=== PATIENT | male | born 1945 | race Caucasian/White ===

== ENCOUNTER 2022-09-19 18:51 | Emergency (ER) | payer MEDICARE, BC, SELFPAY ==
[2022-09-19 19:39] VITALS: BP 154/75; PULSE 61; RESP 16; TEMP 37.1; O2SAT 98
--- NOTE | 2022-09-19 19:53 | ED.GENADULT ---
HPI - General Adult General Time Seen by Provider: 19:53 Date Seen: 09/19/22 Chief complaint: Shortness of Breath/Dyspnea Stated complaint: Shortness of Breath Time Seen by Provider: 09/19/22 19:41 Source: patient, RN notes reviewed and old records reviewed Mode of arrival: ambulatory Limitations: no limitations History of Present Illness HPI narrative: 76-year-old male with history of hypertension, hypercholesterolemia who presents today with shortness of breath. Patient notes that intermittently for the last couple weeks, after activity, takes him a long time to recover. He does not notice any chest pain or shortness of breath during activity. He denies orthopnea or lower extremity swelling. Today he did usual exercise as well as going to the store and when he got back in his car thought he was more short of breath and he would have expected to be. This continued for about 30 minutes, he called the nurse line and they encouraged him to be seen. He initially presented to urgent care then was sent to the emergency department. Shortness of breath is now resolved. He does have a follow-up appointment with his regular doctor tomorrow. Related Data Home Medications Medication Instructions Recorded Confirmed blood sugar diagnostic (Contour #[id number] 06/29/22 09/19/22 Next Test Strips) finasteride 5 mg tablet 5 mg PO 06/29/22 09/19/22 losartan 25 mg tablet 25 mg PO 06/29/22 09/19/22 metronidazole 1 % topical gel ml topical 06/29/22 09/19/22 mupirocin 2 % topical ointment topical 06/29/22 09/19/22 niacin 500 mg tablet,extended ea PO 06/29/22 09/19/22 release 24 hr simvastatin 20 mg tablet 20 mg PO 06/29/22 09/19/22 aspirin 81 mg chewable tablet 81 mg PO QDAY 09/19/22 09/19/22 metformin 1,000 mg tablet 1,000 mg PO BIDWMEAL 09/19/22 09/19/22 metoprolol succinate 100 mg 100 mg PO QDAY 09/19/22 09/19/22 tablet,extended release 24 hr Allergies Allergy/AdvReac Type Severity Reaction Status Date / Time No Known Drug Allergies Allergy Verified 09/19/22 18:29 Review of Systems Status of ROS: Reports: 10 or more systems reviewed and unremarkable except as noted in History and below PFSH [facility] Medical History (Updated 09/19/22 @ 21:30 by Claudy Pollard MD) Balanitis Social History Smoking Status: Never smoker Exam Narrative: Exam Narrative: General: Well-developed and well-nourished, no acute distress Head: Atraumatic and normocephalic Eyes: Pupils are equal reactive, extraocular motions intact, conjunctiva clear ENT: External nose and ears are normal, posterior pharynx without erythema or exudate Neck: No midline cervical tenderness, full spontaneous range of motion the neck, trachea midline, no adenopathy Heart: Regular rate and rhythm no murmurs or thrills Lungs: Clear to auscultation bilaterally without wheezes or crackles Abdomen: Soft, nontender, nondistended with active bowel sounds Musculoskeletal: No tenderness, deformity, or edema Neurologic: Awake, alert, and oriented x3, no gross focal neurologic deficits, cranial nerves intact as tested Psych: Mood and affect are appropriate Skin: No rashes Const: Vital Signs, click to edit/add: Vital Signs - 24 hr 09/19/22 19:39 Temperature 98.7 F Pulse Rate [Left P ulse Oximeter] 61 Respiratory Rate 16 Blood Pressure [Le ft Upper Arm] 154/75 H Pulse Oximetry 98 Oxygen Delivery Me thod Room Air Course Course Hospital Course: Patient seen and examined, prior records are reviewed. Differential diagnosis includes but not limited to heart failure, asthma, upper respiratory infection, pneumonia, acute coronary syndrome, dysrhythmia. Patient presents with prolonged post activity dyspnea which is been intermittent for the last couple weeks. On exam here, he is asymptomatic. Last episode was about 3 hours prior to coming emergency department. Labs, EKG, chest x-ray ordered. If these are reassuring, patient follow-up with his primary care doctor tomorrow as scheduled. Assuming normal results today, he should have a stress test done and this can be arranged through his primary care provider. Reevaluation(s) Reevaluation #1: Labs reassuring including negative troponin, normal BNP. Chest x-ray demonstrates some hyperinflation could be from asthma or emphysema although patient has no history of either of these and only distant history of smoking. Patient is stable for discharge with outpatient follow-up as scheduled tomorrow for further cardiac and pulmonary evaluation. Time: 21:28 Vital Signs Vital signs: Initial Vital Signs Temperature 98.7 F 09/19/22 19:39 Temperature Source Temporal Artery Scan 09/19/22 19:39 Pulse Rate 61 09/19/22 19:39 Respiratory Rate 16 09/19/22 19:39 Blood Pressure 154/75 H 09/19/22 19:39 Blood Pressure Mean 101 09/19/22 19:39 Blood Pressure Position Sitting 09/19/22 19:39 Pulse Oximetry 98 09/19/22 19:39 Oxygen Delivery Method 09/19/22 19:39 Vital Signs Temperature 98.7 F 09/19/22 19:39 Pulse Rate 61 09/19/22 19:39 Respiratory Rate 16 09/19/22 19:39 Blood Pressure 154/75 H 09/19/22 19:39 Pulse Oximetry 98 09/19/22 19:39 Oxygen Delivery Method 09/19/22 19:39 Temperature 98.7 F 09/19/22 19:39 Pulse Rate 61 09/19/22 19:39 Respiratory Rate 16 09/19/22 19:39 Blood Pressure 154/75 H 09/19/22 19:39 Pulse Oximetry 98 09/19/22 19:39 Oxygen Delivery Method 09/19/22 19:39 Medical Decision Making Medical Records Medical records reviewed: Yes I reviewed the patient's medical records Lab Data Lab results reviewed: Yes I reviewed the patient's lab results Labs: Lab Results 09/19/22 09/19/22 09/19/22 Range/Units 20:27 20:27 20:27 WBC 5.57 (4.50-11.00) K/uL RBC 4.94 (4.30-5.90) m/uL Hgb 15.3 (13.5-17.5) gm/dL Hct 45.6 (37.0-53.0) % MCV 92 (80-100) fL MCH 31 (26-34) pg MCHC 34 (32-36) gm/dL RDW Coeff of Kerry 12.5 (11.5-15.5) % Plt Count 178 (140-440) K/uL Neut % (Auto) 59.7 (42.0-72.0) % Lymph % (Auto) 26.0 (20-44) % Love % (Auto) 8.4 (0.0-11.0) % Eos % (Auto) 5.4 (0.0-7.0) % Baso % (Auto) 0.5 (0.0-3.0) % Neut # (Auto) 3.32 (1.7-7.0) K/uL Lymph # (Auto) 1.45 (0.90-2.90) K/uL Love # (Auto) 0.50 (0.00-0.90) K/UL Eos # (Auto) 0.30 (0.00-0.50) K/uL Baso # (Auto) 0.03 (0.00-0.30) K/uL Abs Immat Gran (auto) 0.00 (0.00-0.30) K/uL Imm/Tot Granulo (auto) 0.0 % Sodium 139 (135-149) mmol/L Potassium 4.0 (3.6-5.1) mmol/L Chloride 103 (96-114) mmol/L Carbon Dioxide 27 (20-32) mmol/L BUN 19 (7-30) mg/dL Creatinine 1.0 (0.5-1.5) mg/dL Estimated GFR 79 ml/min Glucose 97 (60-115) mg/dL Calcium 9.3 (8.4-10.6) mg/dL NT-Pro-B Natriuret Pep 73 (0-125) PG/mL POC Troponin I 0.00 L (0.01-0.04) ng/ml Imaging Data Chest x-ray: Attestation: I have reviewed the pertinent imaging results. My impression: Negative chest x-ray Radiologist's impression: Impression: Hyperinflation and chronic interstitial change with minimal basilar atelectasis versus scar. ECG Data Attestation: I personally reviewed and interpreted this ECG as follows: Prior ECG tracings: not available for review Interpretation: Performed at 8:20 p.m. demonstrates normal sinus rhythm rate 61, no acute ST elevations or depressions, normal intervals, normal axis, NV 158. No prior for comparison. Discharge Plan Discharge Clinical Impression: Acute dyspnea Patient Disposition: Home, Self-Care Condition: Stable Instructions: Dyspnea (ED), Cardiac Stress Test (DC) Additional Instructions: Follow-up with your doctor tomorrow as scheduled to discuss further testing Activity Level: Activity as Tolerated Discharge Diet: Regular Prescriptions: No Action mupirocin 2 % ointment topical Label Comments: APPLY TO EXCISION SITE 1-2 TIMES DAILY UNTIL WELL HEALED metronidazole 1 % gel topical (DME) Contour Next Test Strips Strip See Rx Instructions .ROUTE .MEDSUPPLY Qty: 10 Label Comments: TEST THREE TIMES DAILY DIRECTED Rx Instructions: As directed losartan 25 mg tablet 25 mg PO Label Comments: TAKE 1 TABLET BY MOUTH ONCE DAILY. finasteride 5 mg tablet 5 mg PO niacin 500 mg tablet extended release 24 hr PO Label Comments: TAKE 1 TABLET BY MOUTH AT BEDTIME. simvastatin 20 mg tablet 20 mg PO Label Comments: TAKE 1 TABLET BY MOUTH ONCE DAILY WITH EVENING MEAL. metformin 1,000 mg tablet 1,000 mg PO BIDWMEAL metoprolol succinate 100 mg tablet extended release 24 hr 100 mg PO QDAY Label Comments: TAKE 1 TABLET BY MOUTH ONCE DAILY. aspirin 81 mg tablet,chewable 81 mg PO QDAY Follow Up/Referrals: Christofer Castelan MD [Primary Care Provider] - Stand Alone Forms: [employer] Info Instructions
[2022-09-19 19:56] VITALS: BP 165/85; PULSE 55; RESP 12; O2SAT 96
--- NOTE | 2022-09-19 19:56 | CRLHL7_ITS ---
For Patients: As a result of the Century Cures Act, medical imaging exams and procedure reports are released immediately into your electronic medical record. You may view this report before your referring provider. If you have questions, please contact your health care provider. Indication: Dyspnea on exertion Comparison: Two-view chest July 20, 2017 Technique: PA and lateral views of the chest Findings: There is hyperinflation and chronic interstitial change with basilar atelectasis versus scar. The cardiomediastinal silhouette is within normal limits. The bony thorax is grossly intact. Impression: Hyperinflation and chronic interstitial change with minimal basilar atelectasis versus scar. Dictated by Felix Charles MD @ 09/19/2022 8:46:12 PM (Electronically Signed)
--- OUTSIDE RECORDS SUMMARY | 2022-09-19 20:03 | XMS_ITS | Clinical Summary ---
:1945 Author Organization [employer] [facility] [place] [address] Care Team Providers Name Role Phone Christofer Castelan MD Primary Care Provider Allergies Active Allergy Reactions Severity Noted Date Comments Lisinopril Cough 01/20/2007 Medications Medication Sig Dispensed Refills Start Date End Date Status ASPIRIN 81 MG TAB take 1 tablet 0 05/20/2007 Active (81mg) by oral route once daily MULTIVITAMIN ORAL Once daily 0 09/28/2008 Active Blood Pressure Test As directed. 1 Kit 0 03/18/2014 Active Kit-Large (QUICK Automatic arm RESPONSE BP MONITOR) cuff. Diagnosis kitIndications: 401.0 Unspecified essential hypertension metroNIDAZOLE Apply topically 45 g 0 06/10/2016 Active (METROGEL) 1 % to affected gelIndications: Rosacea area(s) 2 times daily. ACCU-CHEK GUIDE GLUCOSE USE TO TEST 1 Kit 0 09/29/2020 Active METERIndications: TWICE A DAY Impaired fasting glucose cholecalciferol Take 1 Capsule 90 Capsule 3 03/02/2021 Active (Vitamin D-3) 2,000 (2,000 units) by unit capsule mouth once daily. Contour Next Test TEST THREE TIMES 300 Each 3 02/24/2022 Active Strips DAILY stripIndications: DIRECTED Impaired fasting glucose finasteride (PROSCAR) 5 Take 5 mg by 0 02/20/2022 Active mg tablet mouth once daily. losartan (COZAAR) 25 mg Take 1 Tablet 90 tablet. 4 07/26/2022 Active tabletIndications: (25 mg) by mouth Essential hypertension once daily. metFORMIN (GLUCOPHAGE) Take 1 Tablet 180 Tablet 4 07/26/2022 Active 1,000 mg (1,000 mg) by tabletIndications: mouth two times Prediabetes daily with meals. metoprolol succinate Take 1 Tablet 90 Tablet 4 07/26/2022 Active (TOPROL XL) 100 mg (100 mg) by Sustained-Release mouth once tabletIndications: daily. Essential hypertension niacin ER (NIASPAN) 500 Take 1 Tablet 90 Tablet 4 07/26/2022 Active mg Sustained-Release (500 mg) by tabletIndications: mouth at Mixed hyperlipidemia bedtime. simvastatin (ZOCOR) 20 Take 0.5 Tablets 45 Tablet 4 07/26/2022 Active mg tabletIndications: (10 mg) by mouth Mixed hyperlipidemia once daily with evening meal. blood-glucose Dispense meter, 1 Each 0 07/26/2022 Active meterIndications: Type test strips, 2 diabetes mellitus lancets covered without complication, by pt ins. Use without long-term to test Twice current use of insulin daily. Refills (HC) for one year. Active Problems Problem Noted Date Type 2 diabetes mellitus without complication, without long-term current 03/13/2022 use of insulin Basal cell carcinoma (BCC) of skin of lip 07/23/2021 Overview: Treated with 20 radiation txs per [facility] [place] Primary cancer of bladder 07/03/2018 ACP (advance care planning) 06/22/2012 Overview: Formatting of this note is dif ferent from the original. 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 Provide interventions aimed at treatment of new or reversible illness/injury or non-life threatening chronic conditions. Durat ion of invasive or uncomfortable interve ntions should generally be limited. Colon polyp 08/27/2011 Overview: Colonoscopy 08/2011 polyp, diverticulosi s repeat in 5 years Colonoscopy 08/2016 polyp repeat in 5 ye ars Colonoscopy 08/2021 TA, repeat in 7 year s with propofol Prediabetes 11/13/2009 Overview: Excellent control with metformin and t and exercise daily. 05/31/2013 Special screening for malignant neoplasm of prostate 0 04/14/2008 Unspecified essential hypertension 01/20/2007 Mixed hyperlipidemia 01/20/2007 Obesity, unspecified 01/20/2007 Routine general medical examination at [facility] acility 01/20/2007 Overview: colonoscopy 11/01/2005 Recheck 5 yrs. Encounters Date Type Specialty Care Team Description 09/19/2022 Travel 09/19/2022 Nurse Triage Christofer Castelan Shortness Of Breath MD Deepak 08/30/2022 Office Visit Christofer Castelan Anxiety; Slee p Problem MD Deepak (Having trouble sleeping, is taking benad ryl now this has been h elping. ) 08/30/2022 Travel 07/26/2022 Office Visit Christofer Castelan Medicare MILADY ANTONIA Sotelo MD (subsequent) Vi sit (76 year medicare w critical access hospital visit- no yolie rns) 07/26/2022 Travel 07/24/2022 Orders Only Lab, [place] [facility] 07/24/2022 Travel 07/19/2022 Nurse/Clinic Staff Christofer Castelan Immuniz ation/Injection Only MD Deepak (COVID-19 ); Immunization/In jection (COVID-19 vacci ne) from Last 3 Months Immunizations Name Administration Dates Next Due AMB Influenza, IIV3 (Age >=3 07/14/2013, 09/19/2009, 009, years)(Flu Clinic Only) 09/09/2008 Amb Influenza, Inact (High-dose) (Flu 07/25/2014 Clinic Only) COVID-19 vaccine ([employer] 07/19/2022 30mcg/0.3mL) 12YO+ BIVALENT BOOSTER JOSY PINEDA COVID-19 vaccine ([employer] 02/06/2022 30mcg/0.3mL) 12YO+ RAMILA-SUCROSE PF, MDV COVID-19 vaccine ([employer] 12/26/2020, 12/05/2020 30mcg/0.3mL) PF, MDV HepA-HepB (T[employer]) 09/09/2005, 11/13/2004, 10/08/2004 Influenza A (H1N1), Inactivated 10/05/2009 Influenza A (H1N1), Inactivated (Age 1210/05/2009 >=3 Years) Influenza, High-dose Inactivated 07/26/2017, 07/08/2016, 04/2015, 07/25/2014 Influenza, IIV3 (Age 6-35 mos) 07/31/2011, 09/19/2009 Influenza, IIV3 (Age >=3 years) 07/14/2013, 06/22/2012, 07/13, 07/30/2010, 09/09/2008, 09/28/2007, 09/11/2006, 09/09/2005, 08/23/2003 Influenza, Inactivated AIIV4 (Age 65+ 07/26/2022, 07/23/2021 , 06/30/2020 Years) Preserv Free Influenza, Inactivated IIV3 (Age 65+ 06/30/2019, 07/03/2018 Years) Preserv Free Pneumococcal Poly,23-Valent 10/26/2012 (Pneumovax) Pneumococcal conj 13-Valent (Prevnar 06/07/2015 13) Td (Age >=7 Years) 11/13/2004, 01/29/1996 Tdap 12/09/2011 Zoster (Shingrix-RZV, recombinant) 10/10/2018, 07/06/2018 Zoster (Zostavax-ZVL, live) 09/28/2007 Family History Medical History Relation Name Comments Cancer Brother 2 Kan lung Brain cancer Brother 4 Man of Glio at 60 Arthritis Father Patrick Asthma Father Patrick Heart Disease Father Patrick Atrial Fibrillat ion Heart failure Father Patrick of this at 90 Stroke Father Patrick Stroke Blood Disease Mother Lizzeth Bentley's Granulo matosis Cancer-breast Mother Lizzeth Heart Disease Mother Lizzeth Atrial Fibrillat ion/WA, of this at 90 Hypertension Mother Lizzeth Anesthesia Problem No Family History Relation Name Status Comments Brother 1 Christofer Alive Brother 2 Kan Alive Brother 3 Shayan Alive Brother 4 Man Alive Father Patrick Mother Lizzeth Sister Sintia Alive Social History Tobacco Use Types Packs/Day Years Used Date Never Smoker Smokeless Tobacco: Never Used Tobacco Cessation: Counseling Given: Yes Alcohol Use Standard Drinks/Week Comments Yes 1.7 (1 standard drink = 0.6 oz pure alco hol) occ Alcohol Habits Answer Date Recorded How often do you have a drink containing alcohol? Not asked How many drinks containing alcohol do you have on a typical Not asked day when you are drinking? How often do you have six or more drinks on one occasion? No t asked Comment: occ 06/30/2019 Sex Assigned at Date Recorded Not on file COVID-19 Exposure Response Date Recorded In the last 10 days, have you been in contact with No / Unsu re 09/19/2022 5:44 PM [employer] someone who was confirmed or suspected to have Coronavirus/COVID-19? Obstetrics History Last Filed Vital Signs Vital Sign Reading Time Taken Comments Blood Pressure 113/66 08/30/2022 1:04 PM [employer] Pulse 67 08/30/2022 1:04 PM [employer] Temperature 36.7 ??C (98 ??F) 05/25/2022 2:29 PM CDT Respiratory Rate 18 05/25/2022 2:29 PM CDT Oxygen Saturation 98% 08/30/2022 1:04 PM [employer] Inhaled Oxygen Concentration - - Weight 92.7 kg (204 lb 6.4 oz) 08/30/2022 1:04 PM [employer] Height 172 cm (5' 7.72) 08/30/2022 1:04 PM [employer] Body Mass Index 31.34 08/30/2022 1:04 PM [employer]CH[employer]IC Plan of Treatment Upcoming Encounters Date Type Specialty Care Team Description 09/20/2022 Office Visit Peyton Christensen DO [address] [address] [place] 01/27/2023 Orders Only Lab[facility] [place] 01/29/2023 Office Visit Christofer Castelan MD [address] [address] ([place]) Health Maintenance Due Date Last Done Comments Tetanus booster 12/09/2021 12/09/2011, 11/13/2004, 01/29/1996 Medicare Wellness for age 65+ 07/26/2023 07/26/2022, 2020, 07/03/2018, Additional history exists BMI (ht and wt on same day) for 08/30/2023 08/30/2022, 07/13, age 18+ 05/10/2022, Additional history exists Depression screening for age 12+ 08/30/2023 08/30/2022, , 07/24/2021, Additional history exists Colonoscopy through age 75 08/14/2026 08/14/2021, , 08/30/2016, Additional history exists Lipids for age 45-75 07/24/2027 07/24/2022, 03/12/2022, 09/03/2021, Additional history exists Tdap Completed 12/09/2011 Pneumococcal series for age 65+ Completed 06/07/2015, 10/13 Zoster (shingles) series for age Completed 10/10/2018, , 50+ 09/28/2007 Hepatitis C screening for age Completed 03/12/2022 18-79 COVID-19 vaccine series Completed 07/19/2022, 02/06/2022, 07/19/2021, Additional history exists Influenza for age 65+ Completed 07/26/2022, 07/23/2021, 06/30/2020, Additional history exists Procedures Procedure Name Priority Date/Time Associated Diagnosis Comme nts LIPID PANEL W Routine 07/24/2022 7:32 AM Mixed hyperlipidemia Results for this REFLEX MEASURED LDL CDT procedur e are in the results section. BASIC METABOLIC Routine 07/24/2022 7:32 AM Unspecified essenti al Results for this PANEL CDT hypertension procedure are i n the results section. HEMOGLOBIN A1C Routine 07/24/2022 7:32 AM Prediabetes Results for this CDT procedure are i n the results section. from Last 3 Months Results (ABNORMAL) LIPID PANEL W REFLEX MEASURED LDL (07/24/2022 7:32 AM CDT) Patholo gist Method Time Signature CHOLESTEROL,TOTAL 108 100 - 199 07/24/2022 [facility] mg/dL 9:50 PM CDT [facility] TRIGLYCERIDES 104 <150 07/24/2022 [facility] mg/dL 9:50 PM CDT [facility] HDL CHOLESTEROL 40 (L) >40 mg/dL 07/24/2022 [facility] 9:50 PM CDT [facility] NON-HDL 68 <145 07/24/2022 [facility] CHOLESTEROL mg/dl 9:50 PM CDT [facility] CHOL/HDL RATIO 2.70 <4.50 07/24/2022 [facility] 9:50 PM CDT [facility] LDL CHOLESTEROL 47 <=130 07/24/2022 [facility] mg/dL 9:50 PM CDT [facility] VLDL CHOLESTEROL 21 <=30 07/24/2022 [facility] mg/dL 9:50 PM CDT [facility] PROVIDER ORDERED RANDOM 07/24/2022 [facility] STATUS 9:50 PM CDT [facility] Specimen Anatomical Collection Method / Collection Time Recei leonie Time (Source) Location / Volume Laterality Blood BLOOD SPECIMEN / Venipuncture / 07/24/2022 7:32 2021 7:38 Unknown Unknown AM CDT AM CDT Christofer Castelan MD CHEMISTRY Performing Organization Address City/State/ZIP Code Phon e Number [facility] [address] [place] [address] [facility] LAB[facility]ATORY HEMOGLOBIN A1C MONITORING (POCT) (07/24/2022 7:32 AM CDT) P athologist Signature HEMOGLOBIN A1C 5.5 <=6.4 % 07/24/2022 [facility] 7:47 AM CDT [place] (POCT) [facility] Specimen Anatomical Collection Method / Collection Time Recei leonie Time (Source) Location / Volume Laterality Blood BLOOD SPECIMEN / Venipuncture / 07/24/2022 7:32 2021 7:38 Unknown Unknown AM CDT AM CDT Narrative [facility] 2021 7:47 AM CDT ? (<=6.9%) ? Indicates good control ? (7.0% to 7.9%) ? Indicates fa ir control ? (>=8.0%) ? Indicates poor control ?? NOTE: ??These thresholds are guideli regina and ?individual targets may va ry. Falsely low levels may be seen with: Recent Transfusion, Recent Significant B lood Loss, Hemolytic Diseases, or Falsely elevated levels may be seen with : Untreated Anemias, Splenectomy ? Christofer Castelan MD CHEMISTRY Performing Organization Address City/State/ZIP Code Phon e Number [facility] [address] [place] [address] (ABNORMAL) BASIC METABOLIC PANEL (07/24/2022 7:32 AM CDT) Analysis Performed At Patho logist Time Signature SODIUM 141 135 - 145 07/24/2022 [facility] mmol/L 9:49 PM CDT [facility] POTASSIUM 4.2 3.5 - 5.0 07/24/2022 [facility] mmol/L 9:49 PM CDT [facility] CHLORIDE 105 98 - 110 07/24/2022 [facility] mmol/L 9:49 PM CDT [facility] CO2,TOTAL 26 21 - 31 07/24/2022 [facility] mmol/L 9:49 PM CDT [facility] ANION GAP 10 5 - 18 07/24/2022 [facility] 9:49 PM CDT [facility] GLUCOSE 107 (H) 65 - 100 07/24/2022 [facility] mg/dL 9:49 PM CDT [facility] CALCIUM 8.8 8.5 - 10.5 07/24/2022 [facility] mg/dL 9:49 PM CDT [facility] BUN 13 8 - 25 07/24/2022 [facility] mg/dL 9:49 PM CDT [facility] CREATININE 0.88 0.72 - 07/24/2022 [facility] 1.25 mg/dL 9:49 PM CDT [facility] BUN/CREAT RATIO 15 10 - 20 07/24/2022 [facility] 9:49 PM CDT [facility] eGFR 90 (L) >90 07/24/2022 [facility] mL/min/1.7 9:49 PM CDT [facility] 3m2 [facility]AL [facility] Comment: As of 2021, eGFR is calcu lated by the CKD-EPI creatinine equation without race adjustment. eGFR can be inf luenced by muscle mass, exercise, and diet. The reported eGFR is an estimation only and is only applicable if the renal function is stable. Specimen Anatomical Collection Method / Collection Time Recei leonie Time (Source) Location / Volume Laterality Blood BLOOD SPECIMEN / Venipuncture / 07/24/2022 7:32 2021 7:38 Unknown Unknown AM CDT AM CDT Christofer Castelan MD CHEMISTRY Performing Organization Address City/State/ZIP Code Phon e Number [facility] [address] [place] [address] LAB[facility] [address] LABORATORY from Last 3 Months Insurance Payer Benefit Plan / Subscriber ID Effective Dates Phone Addre ss Type Group MEDICARE PART B MEDICARE PART B [id number] 2012-Presen ATTN: CLAIMS - HB USE ONLY HB ONLY t [address] [place] [address] MEDICARE PART A MEDICARE PART A [id number] 2012-Presen ATTN: CLAIMS - HB USE ONLY HB ONLY t [address] [place] [address] [place] [place] [employer] [place] [id number] 2016-Presen [address] [address] [place] [address], [place] ONLY [id number] [employer] [place] [id number] 2016-[place] [address] [address] [address] [place], [place] [id number] Advance Directives Documents on File Type Date Recorded 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
--- OUTSIDE RECORDS SUMMARY | 2022-09-19 20:03 | XMS_ITS | Encounter Summary ---
:1945 Author Care Team Providers Name Role Phone [facility] Primary Care Provider [phone] Reason for Visit None recorded. Assessment and Plan 1. History of malignant neoplasm of braden dder Discussion Note rtc 6 months for 4 year BTR Patient educational handouts: No information available. Plan of Care Reminders Provider Appointments Established 10 03/14/2023 10:00AM Norman carrasquillo MD Lab None recorded. ? ? Referral None recorded. ? ? Procedures None recorded. ? ? Surgeries None recorded. ? ? Imaging None recorded. ? ? Medications Name Start Date ? ? cefdinir 300 mg capsule ? TAKE 1 CAPSULE (300 MG) BY MOUTH IN THE MORNING AND 1 CAPSULE (300 MG) IN THE EVENING. DO ALL THIS FOR 7 DAYS. ciprofloxacin 500 mg tablet ? TAKE 1 TABLET TWICE A DAY WITH FOOD AND WATER FOR 7 D AYS. Contour Next One Meter ? Contour Next Test Strips ? TEST THREE TIMES DAILY DIRECTED finasteride 5 mg tablet ? TAKE ONE TABLET BY MOUTH EVERY DAY fluconazole 200 mg tablet ? TAKE ONE TABLET BY MOUTH EVERY DAY fluticasone propionate 50 mcg/actuation nasal spray,santiago spension ? INSTILL 1-2 SPRAYS TO BOTH NOSTRILS 2 TIMES DAILY FOR 14 DAYS. losartan 25 mg tablet ? TAKE 1 TABLET (25 MG) BY MOUTH ONCE DAILY. metformin ? metformin 1,000 mg tablet ? TAKE 1 TABLET (1,000 MG) BY MOUTH TWO TIMES DAILY WIT H MEALS. metoprolol succinate ER 100 mg tablet,extended release 24 hr ? TAKE 1 TABLET (100 MG) BY MOUTH ONCE DAILY. metronidazole 1 % topical gel ? APPLY A THIN LAYER TO FACE TWICE A DAY mupirocin 2 % topical ointment ? APPLY TO SURGICAL SITE ON EAR 1-2 TIMES DAILY UNTIL H EALED niacin ER 500 mg tablet,extended release 24 hr ? TAKE 1 TABLET (500 MG) BY MOUTH AT BEDTIME. ofloxacin 0.3 % ear drops ? PLACE 10 DROPS INTO LEFT EAR ONCE DAILY FOR 7 DAYS. simvastatin 10 mg tablet ? TAKE 1 TABLET BY MOUTH ONCE DAILY WITH EVENING MEAL. simvastatin 20 mg tablet ? TAKE 1 TABLET BY MOUTH ONCE DAILY WITH EVENING MEAL. triamcinolone acetonide 0.1 % topical ointment ? APPLY TOPICALLY TO AFFECTED AREA(S) 3 TIMES DAILY. Medications Administered None recorded. Vitals Height Weight BMI 5 ft 8 in 201 lbs 30.6 kg/m2 Results Lab Results None recorded. Allergies Code Code System Name Reaction Severity Onset NKDA ? ? ? Problems Name Status Onset Date Source ? 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 History of Malignant Neoplasm of Bladder Active 022 ? Procedures Date Name Performed by ? ? Transurethral Resection of Neoplasm of B ladder Information not available ? Colonoscopy Information not avai lable Vaccine List Vaccine Type pneumococcal polysaccharide PPV23 06/07/2015 Social History Tobacco Smoking Status Never Smoker What is your level of alcohol consumption? Occasional Has tobacco cessation counseling been provided? N Are you currently employed? N Do you or have you ever used smokeless tobacco? Never used s mokeless tobacco What was the date of your most recent tobacco 09/13/2022 screening? Do you or have you ever used e-cigarettes or Never used elec tronic cigarettes vape? What is your level of caffeine consumption? Moderate Do you use any illicit or recreational drugs? N What is your relationship status? Functional Status Unknown. Past Encounters Encounter Date Diagnosis Provider 09/13/2022 History of Malignant Neoplasm of Normna Fl MD sebastian: [address] [place], [place] [phone], Ph. History of Present Illness Note: <div>here for bladder tumor recheck. </div> Review of Systems ? Comprehensive General Adult ROS Reported By: Patient Constitutional: Constitutional: no fever, no chills Endocrine: Endocrine: no fatigue, no in creased thirst Cardiovascular: Cardiovascular: no chest rissa n, no palpitations Respiratory: Respiratory: no wheezing, no cough, no shortness of breath Gastrointestinal: Gastrointestinal: no abdomin al pain, no nausea, no vomiting, no constipation, no GERD Genitourinary: Genitourinary: no incontinen ce, no difficulty urinating Physical Exam None recorded.
--- OUTSIDE RECORDS SUMMARY | 2022-09-19 20:03 | XMS_ITS ---
:1945 Author Care Team Providers Name Role Phone [facility] Primary Care Provider [phone] Allergies Code Code System Name Reaction Severity Status Onset NKDA ? Medications Name Status Start Date Stop Date ? ? amoxicillin 500 mg capsule Completed ? 01/04 amoxicillin 875 mg tablet Completed ? 2021 cefdinir 300 mg capsule Active ? Not avai lable TAKE 1 CAPSULE (300 MG) BY MOUTH IN THE MORNING AND 1 CAPSULE (300 MG) IN THE EVENING. DO ALL THIS FOR 7 DAYS. ciprofloxacin 500 mg tablet Active ? Not available TAKE 1 TABLET TWICE A DAY WITH FOOD AND WATER FOR 7 DAYS. Contour Next One Meter Active ? Not avail able Contour Next Test Strips Active ? Not sonia ilable TEST THREE TIMES DAILY DIRECTED doxycycline hyclate 100 mg tablet Completed ? 01/04/2022 finasteride 5 mg tablet Active ? Not avai lable TAKE ONE TABLET BY MOUTH EVERY DAY fluconazole 200 mg tablet Active ? Not av ailable TAKE ONE TABLET BY MOUTH EVERY DAY fluticasone propionate 50 mcg/actuation nasal spray,suspension A ctive ? Not available INSTILL 1-2 SPRAYS TO BOTH NOSTRILS 2 TIMES DAILY FOR 14 DAYS. hydrocodone 5 mg-acetaminophen 325 mg tablet Completed ? 01/04/2022 losartan 25 mg tablet Active ? Not availa ble TAKE 1 TABLET (25 MG) BY MOUTH ONCE DAILY. metformin Active ? Not available metformin 1,000 mg tablet Active ? Not av ailable TAKE 1 TABLET (1,000 MG) BY MOUTH TWO TIMES DAILY WITH MEALS. metoprolol succinate Completed ? 01/04/2022 metoprolol succinate ER 100 mg tablet,extended release 24 hr Act satya ? Not available TAKE 1 TABLET (100 MG) BY MOUTH ONCE DAILY. metoprolol succinate ER 200 mg tablet,extended release 24 hr Com pleted ? 09/14/2021 TAKE 1 TABLET BY MOUTH ONCE DAILY. metronidazole 1 % topical gel Active ? No t available APPLY A THIN LAYER TO FACE TWICE A DAY mupirocin 2 % topical ointment Active ? N ot available APPLY TO SURGICAL SITE ON EAR 1-2 TIMES DAILY UNTIL HEALED niacin Completed ? 01/04/2022 niacin ER 500 mg tablet,extended release 24 hr Active ? Not available TAKE 1 TABLET (500 MG) BY MOUTH AT BEDTIME. ofloxacin 0.3 % ear drops Active ? Not av ailable PLACE 10 DROPS INTO LEFT EAR ONCE DAILY FOR 7 DAYS. simvastatin Completed ? 01/04/2022 simvastatin 10 mg tablet Active ? Not sonia ilable TAKE 1 TABLET BY MOUTH ONCE DAILY WITH EVENING MEAL. simvastatin 20 mg tablet Active ? Not sonia ilable TAKE 1 TABLET BY MOUTH ONCE DAILY WITH EVENING MEAL. triamcinolone acetonide 0.1 % topical cream Completed ? 01/04/2022 APPLY TO AFFECTED AREA ON BACK TWICE A DAY FOR UP TO 2 WEEKS, A S NEEDED triamcinolone acetonide 0.1 % topical ointment Active ? Not available APPLY TOPICALLY TO AFFECTED AREA(S) 3 TIMES DAILY. Problems Name Status Onset Date Source ? 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 History of Malignant Neoplasm of Bladder Active 022 ? Procedures Date Name Performed by ? ? Transurethral Resection of Neoplasm of B ladder Information not available ? Colonoscopy Information not avai lable Results Lab Results Date Name Specimen Result Interpretation Description Value Range Status Address ? 07/05/2022 Bladder Scan ? Volume (in mL) 0 ? ? [facility]: [address] [facility] [address] [facility], [place] 07/05/2022 Urinalysis, ? Blood-Status Small ? ? [facility]: [address] [facility] [address], [place] ? ? ? Protein-Status >=9.0 ? ? [facility]: [address] [facility] [address], [place] ? ? ? Leuko-Status Moderate ? ? [facility]: [address] [facility] [address], [place] 07/04/2022 Urinalysis, ? No observation ? ? ? Dipstick recorded. 01/04/2022 Urinalysis, Urine ? Color-Status Yellow ? ? Dipstick ? ? Urine ? Clarity-Status Clear ? Urine ? Glucose-Status Negative ? Urine ? Bilirubin-Statu Negative ? ? s ? ? Urine ? Ketones-Status Negative ? Urine ? Sp 1.015 ? ? [place]-Status ? ? Urine ? pH-Status 7.0 ? Urine ? Nitrates-Status negative ? Urine ? Blood-Status Trace ? Urine ? Leuko-Status Negative ? ? 09/14/2021 Urinalysis, ? pH-Status 6.5 ? ? Dipstick ? ? ? Nitrates-Status negative ? Blood-Status Negative ? Leuko-Status Negative ? Specimen Type Voided ? ? 09/14/2021 Urinalysis, ? No observation ? ? ? Dipstick recorded. 03/16/2021 Urinalysis, ? No observation ? ? ? Dipstick recorded. 09/15/2020 Urinalysis, ? No observation ? ? ? Dipstick recorded. ? Urinalysis, ? Color-Status Yellow ? ? Dipstick ? ? ? Clarity-Status Clear ? pH-Status 6.5 ? Nitrates-Status negative ? Blood-Status Negative ? Leuko-Status Negative ? ? ? Urinalysis, ? Blood-Status Small ? ? Dipstick Past Encounters Encounter Date Diagnosis Provider 09/13/2022 History of Malignant Neoplasm of Norman cortes MD: [address], [place], [place] [address], Ph. 07/04/2022 Candidal Balanitis Norman Dumas MD: [address] [facility], [place] [address], Ph. 01/04/2022 Blood in Urine; Lower Urinary Tract Norman Dumas MD: [address] Symptoms Due to Benign Prostatic S, [place] [address], Ph. Hypertrophy; Malignant Tumor of [phone] Urinary Bladder 09/14/2021 Malignant Tumor of Urinary Bladder Norman Dumas MD: [address] [place], [place] [address], Ph. Social History Tobacco Smoking Status Never Smoker Vaccine List Vaccine Type pneumococcal polysaccharide PPV23 06/07/2015 Plan of Care Reminders Provider Appointments None recorded. ? ? Lab None recorded. ? ? Referral None recorded. ? ? Procedures None recorded. ? ? Surgeries None recorded. ? ? Imaging None recorded. ? ? Vitals 09/13/2022 10:10AM ESTABLISHED 10 Height Weight BMI 5 ft 8 in 201 lbs 30.6 kg/m2 07/04/2022 10:40AM ESTABLISHED 10 Height Weight BMI 5 ft 8 in 201 lbs 30.6 kg/m2 01/04/2022 09:00AM ESTABLISHED 10 Height Weight BMI 5 ft 8 in 201 lbs 30.6 kg/m2 09/14/2021 10:20AM ESTABLISHED 10 Height Weight BMI 5 ft 8 in 205 lbs 31.2 kg/m2 03/16/2021 10:00AM ESTABLISHED 10 Height Weight BMI 5 ft 8 in 205 lbs 31.2 kg/m2 09/15/2020 10:00AM ESTABLISHED 10 Height Weight BMI 5 ft 8 in 205 lbs 31.2 kg/m2
--- OUTSIDE RECORDS SUMMARY | 2022-09-19 20:03 | XMS_ITS | Encounter Summary ---
:1945 Author Care Team Providers Name Role Phone [facility] Primary Care Provider [phone] Reason for Visit None recorded. Assessment and Plan 1. Candidal balanitis ? urinalysis, dipstick ? bladder scan (PROC) Discussion Note will plan rtc as scheduled in September, call if the foreskin flares up for a lotrisone cream RX. Patient educational handouts: No information available. Plan of Care Reminders Provider Appointments Established 10 03/14/2023 10:00AM Norman carrasquillo MD Lab Urinalysis, Dipstick 07/04/2022 [facility] Referral None recorded. ? ? Procedures Bladder Scan (PROC) 07/04/2022 [facility] Surgeries None recorded. ? ? Imaging None [...] 201 lbs 30.6 kg/m2 Results Lab Results Date Name Specimen Result Interpretation Description Value Range Status Address ? 07/05/2022 Urinalysis, ? Blood-Status Small ? ? [facility] [address] [facility] [address], [place] ? ? ? Protein-Status >=9.0 ? ? [facility]: [address] [facility] [address], [place] ? ? ? Leuko-Status Moderate ? ? [facility]: [address] [facility] [address], [place] Allergies Code Code System Name Reaction Severity [...] Unknown. Past Encounters Encounter Date Diagnosis Provider 07/04/2022 Candidal Stephen Dumas MD: [address] [facility], [address], [place] [address], Ph. 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 then got a fungal infection in the foreskin and got 7 day rx for diflucan 200mg. feel almost back to normal. due for cysto again in September. UA bland and PVR 0ml today. </div> Review of Systems ? Comprehensive General [...] incontinen ce, no difficulty urinating Physical Exam ? General Adult Exam Male Reported By: Patient Constitutional: General Appearance: healthy- appearing. Level of Distress: NAD. Ambulation: ambulating sharon lly Male : Penis: uncircumcised; val lomeli seems to be resovled
[2022-09-19 20:37] LABS: Basophils Absolute Auto 0.03 K/uL (0.00-0.30); Basophils Percent Auto 0.5 % (0.0-3.0); Eosinophils Percent Auto 5.4 % (0.0-7.0); Hematocrit 45.6 % (37.0-53.0); Hemoglobin* 15.3 gm/dL (13.5-17.5); Lymphocytes Absolute Auto 1.45 K/uL (0.90-2.90); Mean Corpuscular HGB Conc 34 gm/dL (32-36); Mean Corpuscular Hemoglobin 31 pg (26-34); Mean Corpuscular Volume 92 fL (80-100); Monocytes Percent Auto 8.4 % (0.0-11.0); Neutrophils Absolute Auto 3.32 K/uL (1.7-7.0); Neutrophils Percent Auto 59.7 % (42.0-72.0); Platelet Count* 178 K/uL (140-440); RDW Coefficient of Variation % 12.5 % (11.5-15.5); Red Blood Count 4.94 m/uL (4.30-5.90); White Blood Count* 5.57 K/uL (4.50-11.00)
[2022-09-19 20:40] LABS: Slide Review Reflex No
[2022-09-19 20:53] LABS: Chloride* 103 mmol/L (96-114)
[2022-09-19 20:54] LABS: Sodium* 139 mmol/L (135-149)
[2022-09-19 20:56] LABS: Estimated Glomerular Filt Rate 79 ml/min
[2022-09-19 20:57] LABS: Blood Urea Nitrogen* 19 mg/dL (7-30); Calcium* 9.3 mg/dL (8.4-10.6); Carbon Dioxide* 27 mmol/L (20-32); Glucose* 97 mg/dL (60-115)
[2022-09-19 21:06] LABS: NT Pro B Type NatriureticPept* 73 PG/mL (0-125)
== END 2022-09-19 21:48 | disposition home or self-care (01) ==
PROVIDERS: Emergency Provider Family Medicine; PCP Family Medicine
DX: R06.00 Dyspnea, unspecified (principal)
CPT/HCPCS: 36415; 71046; 80048; 83880; 84484; 85025; 93005; 99284

== ENCOUNTER 2022-09-23 14:56 | Emergency (ER) | payer MEDICARE, BC, SELFPAY ==
[2022-09-23 15:12] VITALS: BP 149/73; PULSE 77; RESP 18; TEMP 36.9; O2SAT 98; BMI 30.7
--- NOTE | 2022-09-23 16:48 | ED.SOB ---
HPI - SOB/Dyspnea General Chief Complaint: Shortness of Breath/Dyspnea Stated Complaint: Breathing difficulties, arrhythmic heart Time Seen by Provider: 09/23/22 16:22 Source: patient Mode of arrival: ambulatory Limitations: no limitations History of Present Illness HPI Narrative: 76-year-old male with no significant pulmonary or cardiac history presents to the emergency department with dyspnea at rest. This has been an ongoing issue for him and he was evaluated 4 days ago for the same complaint. He presented to his primary care clinic and was triaged for shortness of breath. It sounds like the triage nurse told him that he had an irregular heart rate. They did not do an EKG. They referred him to the emergency department. I do not know if his rate was elevated or what was seen. Of course here, he is in sinus rhythm and is asymptomatic. He had an extensive workup here 4 days ago including blood work, chest x-ray and EKG. These were all very reassuring. He has been scheduled outpatient for Holter monitor and pulmonary function testing next week. He was to have a Holter monitor placed today, but was referred to the ED instead. He would like to have this placed here in the emergency department. He had a normal stress test 2 years ago and he believes he has never had an echo. He does not have a history of sleep apnea as far as he knows. He is not having any chest pain. There is no fever or productive cough. The shortness of breath always comes at rest. He is able to walk without difficulty and walks regularly at a local shopping center. There was a trial of giving him an albuterol inhaler by his primary care team, this unfortunately worsened his shortness of breath. He has since discontinued. He has absolutely no acute concerns today and came here specifically because he thought he could get the Holter monitor more quickly. Past medical history, surgical history, medications, allergies, family history and social history are reviewed from the note on 09/19 and are unchanged. ROS is currently negative times 12 systems at the time of my exam. Related Data Home Medications Medication Instructions Recorded Confirmed blood sugar diagnostic (Contour #10 ea 06/29/22 09/19/22 Next Test Strips) finasteride 5 mg tablet 5 mg PO 06/29/22 09/19/22 losartan 25 mg tablet 25 mg PO 06/29/22 09/19/22 metronidazole 1 % topical gel ml topical 06/29/22 09/19/22 mupirocin 2 % topical ointment topical 06/29/22 09/19/22 niacin 500 mg tablet,extended ea PO 06/29/22 09/19/22 release 24 hr simvastatin 20 mg tablet 20 mg PO 06/29/22 09/19/22 aspirin 81 mg chewable tablet 81 mg PO QDAY 09/19/22 09/19/22 metformin 1,000 mg tablet 1,000 mg PO BIDWMEAL 09/19/22 09/19/22 metoprolol succinate 100 mg 100 mg PO QDAY 09/19/22 09/19/22 tablet,extended release 24 hr Allergies Allergy/AdvReac Type Severity Reaction Status Date / Time No Known Drug Allergies Allergy Verified 09/19/22 18:29 [facility] Medical History [facility] Social History Smoking Status: Never smoker Exam Const: Vital Signs, click to edit/add: Vital Signs - 24 hr 09/23/22 15:12 Temperature 98.4 F Pulse Rate [Right Pulse Oximeter] 77 Respiratory Rate 18 Blood Pressure [Ri ght Upper Arm] 149/73 H Pulse Oximetry 98 Oxygen Delivery Me thod Room Air Documenting provider has reviewed patient's vital signs: yes Common normals: no apparent distress General appearance: cooperative HENMT: Common normals: normocephalic Head and scalp: normocephalic Eye: Common normals: conjunctivae normal Conjunctiva: conjunctiva(e) normal Other: Normal visual tracking Resp: Common normals: normal respiratory effort and clear to auscultation bilaterally Auscultation: clear to auscultation bilaterally Cardio: Common normals: regular rate, regular rhythm, S1 normal heart sound, S2 normal heart sound, no murmurs and peripheral pulses 2+ throughout Rate: regular rate Rhythm: regular rhythm Heart sounds: S1 normal and S2 normal Peripheral pulses: pulses 2+ throughout Extremity: Common normals: normal to inspection, normal capillary refill and no pedal edema Neuro: Speech: speech normal Motor exam: strength 5/5 throughout, no tremor noted and no movement abnormalities noted Psych: Common normals: thought process normal and cooperative Thought process: normal thought process Insight: fair Judgement: fair Skin: Common normals: no rashes or lesions noted General skin exam: no rashes or lesions noted Course Vital Signs Vital signs: Initial Vital Signs Temperature 98.4 F 09/23/22 15:12 Temperature Source Temporal Artery Scan 09/23/22 15:12 Pulse Rate 77 09/23/22 15:12 Respiratory Rate 18 09/23/22 15:12 Blood Pressure 149/73 H 09/23/22 15:12 Blood Pressure Mean 98 09/23/22 15:12 Blood Pressure Position Sitting 09/23/22 15:12 Pulse Oximetry 98 09/23/22 15:12 Oxygen Delivery Method 09/23/22 15:12 Vital Signs Temperature 98.4 F 09/23/22 15:12 Pulse Rate 77 09/23/22 15:12 Respiratory Rate 18 09/23/22 15:12 Blood Pressure 149/73 H 09/23/22 15:12 Pulse Oximetry 98 09/23/22 15:12 Oxygen Delivery Method 09/23/22 15:12 Temperature 98.4 F 09/23/22 15:12 Pulse Rate 77 09/23/22 15:12 Respiratory Rate 18 09/23/22 15:12 Blood Pressure 149/73 H 09/23/22 15:12 Pulse Oximetry 98 09/23/22 15:12 Oxygen Delivery Method 09/23/22 15:12 MDM - SOB/Dyspnea MDM Narrative Medical decision making narrative: Asymptomatic with recent thorough workup. Reviewed my rationale with patient for not repeating the previous tests. EKG is performed today and this shows normal sinus rhythm with no ischemic changes. Holter monitor will be placed, outpatient echo ordered. Stressed to the patient that I will not be following up with these results. He will need to make a follow-up with his primary care provider in 1-2 weeks to review these. Keep his appointment for his pulmonary function tests and discontinue the albuterol. I reviewed the signs and symptoms that would warrant ED presentation with him and he verbalizes understanding and agreement ECG Data Attestation: I personally reviewed and interpreted this ECG as follows: Prior ECG tracings: available for review Interpretation: Normal sinus rhythm with [address] or T-wave abnormalities. Good R-wave progression, normal axis normal rate Discharge Plan Discharge Clinical Impression: Shortness of breath at rest Patient Disposition: Home, Self-Care Condition: Stable Instructions: Shortness of Breath (ED) Additional Instructions: There are no signs of an abnormal heart rhythm today in the emergency room. Sometimes these abnormal heart rhythms can be very tricky to catch. We will place a Holter monitor, this is a heart monitor that you wear that will hopefully catch any abnormal rhythms if they are present. You will need to follow-up with your primary care doctor to get the results. I would also recommend that we do an echo which is an ultrasound of the heart to specifically look at the right side of your heart as well. I do not appreciate any signs of wheezing and do not think this is asthma. Because of this, I do not recommend that you keep using the inhaler. Please keep the appointment as scheduled for your pulmonary function tests next week. Remember the severe symptoms that we reviewed, these would be indications to come to the emergency room again. I have reviewed the blood work and x-rays that you had done last week and believe these are sufficient. I do not recommend repeating these today. Please schedule a follow-up with her primary care doctor in 2 weeks to discuss all of these results Activity Level: No Restrictions Discharge Diet: Regular Prescriptions: No Action mupirocin 2 % ointment topical Label Comments: APPLY TO EXCISION SITE 1-2 TIMES DAILY UNTIL WELL HEALED metronidazole 1 % gel topical (DME) Contour Next Test Strips Strip See Rx Instructions .ROUTE .MEDSUPPLY Qty: 10 Label Comments: TEST THREE TIMES DAILY DIRECTED Rx Instructions: As directed losartan 25 mg tablet 25 mg PO Label Comments: TAKE 1 TABLET BY MOUTH ONCE DAILY. finasteride 5 mg tablet 5 mg PO niacin 500 mg tablet extended release 24 hr PO Label Comments: TAKE 1 TABLET BY MOUTH AT BEDTIME. simvastatin 20 mg tablet 20 mg PO Label Comments: TAKE 1 TABLET BY MOUTH ONCE DAILY WITH EVENING MEAL. metformin 1,000 mg tablet 1,000 mg PO BIDWMEAL metoprolol succinate 100 mg tablet extended release 24 hr 100 mg PO QDAY Label Comments: TAKE 1 TABLET BY MOUTH ONCE DAILY. aspirin 81 mg tablet,chewable 81 mg PO QDAY Follow Up/Referrals: Christofer Castelan MD [Primary Care Provider] - Stand Alone Forms: Monitor Backlinks Info Instructions
--- OUTSIDE RECORDS SUMMARY | 2022-09-23 17:11 | XMS_ITS | Encounter Summary ---
:1945 Author Care Team Providers Name Role Phone [facility] Primary Care Provider [phone] Reason for Visit None recorded. Assessment and [...] Social History Tobacco Smoking Status Never Smoker Are you currently employed? N What is your relationship status? What is your level of alcohol consumption? Occasional Has tobacco cessation counseling been provided? N What was the date of your most recent tobacco 09/13/2022 screening? Do you or have you ever used e-cigarettes or Never used elec tronic cigarettes vape? Do you use any illicit or recreational drugs? N Do you or have you ever used smokeless tobacco? Never used s mokeless tobacco What is your level of caffeine consumption? Moderate Functional Status Unknown. Past Encounters Encounter Date Diagnosis Provider 09/13/2022 History of Malignant Neoplasm of Norman Fl MD sebastian: [facility] [address] [place], [place] [address], Ph. History of Present Illness Note: <div>here [...]
--- OUTSIDE RECORDS SUMMARY | 2022-09-23 17:11 | XMS_ITS ---
:1945 Author Care Team Providers Name Role Phone [facility] Primary Care Provider [phone] Allergies Code Code System Name Reaction Severity [...] ? Volume (in mL) 0 ? ? [facility]: [address] [facility] [address] [facility] [place] 07/05/2022 Urinalysis, ? Blood-Status Small ? ? [facility]: [address] [facility] [address], [place] ? ? ? Protein-Status >=9.0 ? ? [facility]: [address] [facility] [address], [place] ? ? ? Leuko-Status Moderate ? ? [facility]: [address] [facility] [address], [place] 07/04/2022 Urinalysis, ? No observation ? ? ? Dipstick recorded. 01/04/2022 Urinalysis, Urine ? Color-Status Yellow ? ? Dipstick ? ? Urine ? Clarity-Status Clear ? Urine ? Glucose-Status Negative ? Urine ? Bilirubin-Statu Negative ? ? s ? ? Urine ? Ketones-Status Negative ? Urine ? Sp 1.015 ? ? [place]-Status ? ? Urine ? pH-Status 7.0 ? [...] cortes MD: [address], [place], [place] [address], Ph. 07/04/2022 Candidal Balanitis Norman Dumas MD: [address] [facility], [address], [place] [address], Ph. [phone] 01/04/2022 Blood in Urine; Lower Urinary Tract Norman Dumas MD: [address] Symptoms Due to Benign Prostatic S, [place] [address], Ph. Hypertrophy; Malignant Tumor of Urinary Bladder 09/14/2021 Malignant Tumor of Urinary Bladder Norman Dumas MD: [address] [place], [place] [address], Ph. Social History Tobacco Smoking Status Never [...]
--- OUTSIDE RECORDS SUMMARY | 2022-09-23 17:11 | XMS_ITS | Clinical Summary ---
:1945 Author Organization [employer] [facility] [place] [address] Care Team Providers Name Role Phone Christofer [...] insulin daily. Refills (HC) for one year. albuterol HFA (PRO-AIR; Inhale 1-2 Puffs 1 Each 0 2 Active VENTOLIN; PROVENTIL) 90 by mouth every 4 mcg/actuation hours if needed inhalerIndications: for Shortness Of Acute dyspnea Breath. Active Problems Problem Noted Date Type 2 diabetes mellitus without complication, without long-term current 03/13/2022 use of insulin Basal cell carcinoma (BCC) of skin of lip 07/23/2021 Overview: Treated with 20 radiation txs per [facility], [place] Primary cancer of bladder 07/03/2018 ACP (advance care planning) 06/22/2012 Overview: Formatting of this note is dif ferent from the original. 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 Encounters Date Type Specialty Care Team Description 09/23/2022 Nurse Triage Peyton Christensen, Shortness Of Breath DO 09/23/2022 Telephone Peyton Christensen, Medication Reaction DO (albuterol HFA (PRO-AIR; BRITTNEY JAMES; PROVENTIL) 90 mcg/actuation i nhaler) 09/20/2022 Office Visit Peyton Christensen, Follow Up (ER visit DO yesterday for s hortness of breathe ) 09/19/2022 Orders Only Scanner 1 scan: (1-Ord) [facility], XR CHEST 2V, 09/1909/19/2022 Travel 09/19/2022 Nurse Triage Christofer Castelan Shortness Of Breath MD Deepak 08/30/2022 Office Visit Christofer Castelan Anxiety; Slee p Problem MD Deepak (Having trouble sleeping, is ta king tamicaadryaniya now th is has been helping. ) 08/30/2022 Travel 07/26/2022 Office Visit Christofer Castelan Medicare MILADY Drake MD (subsequent) Vi sit (76 year medicare w dania visit- no yolie rns) 07/26/2022 Travel 07/24/2022 Orders Only Lab, [place] [facility] 07/24/2022 Travel 07/19/2022 Nurse/Clinic Staff Christofer Castelan Immuniz ation/Injection Only MD Deepak (COVID-19 ); Immunization/In jection (COVID-19 vacci ne) from Last 3 Months Immunizations Name Administration Dates Next Due AMB Influenza, IIV3 (Age >=3 07/14/2013, 09/19/2009, 009, years)(Flu Clinic Only) 09/09/2008 Amb Influenza, Inact (High-dose) (Flu 07/25/2014 Clinic Only) COVID-19 vaccine (Cvent 07/19/2022 30mcg/0.3mL) 12YO+ BIVALENT BOOSTER PF, MDV COVID-19 vaccine (Cvent 02/06/2022 30mcg/0.3mL) 12YO+ RAMILA-SUCROSE PF, MDV COVID-19 vaccine (Cvent 12/26/2020, 12/05/2020 30mcg/0.3mL) PF, MDV HepA-HepB (Twinrix) [...] Father Patrick Stroke Blood Disease Mother Lizzeth Sheree's Granulo matosis Cancer-breast Mother Lizzeth Heart Disease Mother Lizzeth Atrial Fibrillat ion/MA, of this at 90 Hypertension Mother Lizzeth Anesthesia Problem No Family History Relation Name Status Comments Brother 1 Christofer Alive Brother 2 Kan Alive Brother 3 Shayan Alive Brother 4 Man Alive Father Patrick Mother Lizzeth Sister Sintia Alive Social History Tobacco Use Types Packs/Day Years Used Date Smoking Tobacco: Never Smokeless Tobacco: Never Tobacco Cessation: Counseling Given: Yes Alcohol Use Standard Drinks/Week Comments Yes 1.7 (1 standard drink = 0.6 oz pure alco hol) occ Sex Assigned at Date Recorded Not on file COVID-19 Exposure Response Date Recorded In the last 10 days, have you been in contact with No / Unsu re 09/19/2022 5:44 PM [employer] someone who was confirmed or suspected to have Coronavirus/COVID-19? Obstetrics History Last Filed Vital Signs Vital Sign Reading Time Taken Comments Blood Pressure 111/69 09/20/2022 4:28 PM [employer] Pulse 72 09/20/2022 4:28 PM [employer] Temperature 36.7 ??C (98 ??F) 05/25/2022 2:29 PM CDT Respiratory Rate 18 05/25/2022 2:29 PM CDT Oxygen Saturation 96% 09/20/2022 4:28 PM [employer] Inhaled Oxygen Concentration - - Weight 91.9 kg (202 lb 9.6 oz) 09/20/2022 4:28 PM [employer] Height 172 cm (5' 7.72) 08/30/2022 1:04 PM [employer] Body Mass Index 31.06 08/30/2022 1:04 PM [employer] Plan of Treatment Upcoming Encounters Date Type Specialty Care Team Description 10/02/2022 Appointment 01/27/2023 Orders Only Lab, [place] 01/29/2023 Office Visit Christofer Castelan MD [address] [place], [place] [address] (Wo rk) Health Maintenance Due [...] Name Priority Date/Time Associated Diagnosis Comme nts SCAN-RADIOLOGY 09/19/2022 12:00 Results f or this REPORT AM [employer] procedure are i n the results section. LIPID PANEL W Routine 07/24/2022 7:32 AM [...] results section. from Last 3 Months Results SCAN-RADIOLOGY REPORT (09/19/2022 12:00 AM [employer]) Anatomical Region Laterality Modality Other Narrative This result has an attachment that is no t available. Scanner OTHER (ABNORMAL) LIPID PANEL W REFLEX MEASURED LDL (07/24/2022 7:32 AM CDT) [facility] Method Time Signature CHOLESTEROL,TOTAL 108 100 - [...] Organization Address City/State/ZIP Code Phon e Number [facility] [address] [place] [address] LABORATORY-CENTRAL 2000 LABORATORY HEMOGLOBIN A1C MONITORING (POCT) (07/24/2022 7:32 AM CDT) P athologist Signature HEMOGLOBIN A1C 5.5 <=6.4 % 07/24/2022 [facility] MONITORING 7:47 AM CDT [facility] (POCT) [facility] Specimen Anatomical Collection Method / Collection Time Recei leonie Time (Source) Location / Volume Laterality Blood BLOOD SPECIMEN / Venipuncture / 07/24/2022 7:32 2021 7:38 Unknown Unknown AM CDT AM CDT Narrative [facility] - 2021 7:47 AM CDT ? (<=6.9%) [...] Organization Address City/State/ZIP Code Phon e Number [facility] [address] [place] [address] (ABNORMAL) BASIC METABOLIC PANEL (07/24/2022 7:32 AM CDT) Analysis Performed At Patho logist Time Signature SODIUM 141 135 - 145 07/24/2022 [facility] mmol/L 9:49 PM CDT LABORATORY-[facility] TRAL LABORATORY POTASSIUM 4.2 3.5 - 5.0 07/24/2022 [facility] mmol/L 9:49 PM CDT LABORATORY-[facility] TRAL LABORATORY CHLORIDE 105 98 - 110 07/24/2022 [facility] mmol/L 9:49 PM CDT LABORATORY-[facility] TRAL LABORATORY CO2,TOTAL 26 21 - 31 [...] BUN/CREAT RATIO 15 10 - 20 07/24/2022 [facility] 9:49 PM CDT LABORATORY-[facility] TRAL LABORATORY eGFR 90 (L) >90 07/24/2022 [facility] mL/min/1.7 9:49 PM CDT LABORATORY-[facility] 3m2 TRAL [...] Organization Address City/State/ZIP Code Phon e Number [facility] [address] [place] [address] LABORATORY-CENTRAL 2000 LABORATORY from Last 3 Months Insurance Payer Benefit Plan / Subscriber ID Effective Dates Phone Addre ss Type Group MEDICARE PART B MEDICARE PART B [id number] 2012-Presen ATTN: CLAIMS - HB USE ONLY HB ONLY t [address] [place] [address] MEDICARE PART A MEDICARE PART A [id number] 2012-Presen ATTN: CLAIMS - HB USE ONLY HB ONLY t [address] [place] [address] [place] BLUE CROSS [id number] 2016-[facility]en [address] [address] [place], [place] [id number] BLUE CROSS BLUE CROSS [id number] 2016-[place] [address] [address] [place], [place] [id number] Advance Directives Documents on File Type Date Recorded Patient Manager Flight Explanati on Healthcare Directive 10/08/2012 4:03 PM HCD Latest Code Status on File Code Status Date Activated Date Inactivated Comments Full Code 04/08/2018 10:38 AM 04/08/2018 6:44 PM Code Status History Code Status Date Activated Date Inactivated Comments Full Code 04/08/2018 10:38 AM 04/08/2018 10:38 AM Care Teams Retail Inventory Control Clerk Relationship Specialty Start Date End Date Christofer Castelan MD PCP - General Family Practice 05/31/[address] [place] [address]
--- OUTSIDE RECORDS SUMMARY | 2022-09-23 17:11 | XMS_ITS | Encounter Summary ---
:1945 Author Care Team Providers Name Role Phone [facility] Primary Care Provider [phone] Reason for Visit None recorded. Assessment and [...] 07/05/2022 Urinalysis, ? Blood-Status Small ? ? [facility] [address], [place] ? ? ? Protein-Status >=9.0 ? ? [facility]: [address], [place] ? ? ? Leuko-Status Moderate ? ? [facility]: [address], [place] Allergies Code Code System Name Reaction Severity [...] Provider 07/04/2022 Candidal Stephen Dumas MD: [address], [address], [place] [address], Ph. History of Present Illness Note: [...]
[2022-09-23 17:34] VITALS: BP 128/74
== END 2022-09-23 17:38 | disposition home or self-care (01) ==
LOC: ED 17:09
PROVIDERS: Emergency Provider Family Medicine; PCP Family Medicine
DX: R06.02 Shortness of breath (principal)
CPT/HCPCS: 93225; 93226; 99282; 99283; 99284

== ENCOUNTER 2022-09-30 14:44 | Outpatient (CLI) | payer MEDICARE, BC, SELFPAY | END 2022-09-30 14:45 | disposition home or self-care (01) | LOC: RAD 14:45 | PROVIDERS: PCP Family Medicine; Visit Provider Family Medicine | DX: R06.00 Dyspnea, unspecified (principal) | CPT/HCPCS: 93306 ==

== ENCOUNTER 2022-10-03 17:09 | Emergency (ER) | payer MEDICARE, BC, SELFPAY ==
[2022-10-03 17:45] VITALS: BP 148/72; PULSE 65; RESP 16; TEMP 36; O2SAT 97; BMI 30.1
--- NOTE | 2022-10-03 18:28 | ED.SOB ---
HPI - SOB/Dyspnea General Time Seen by Provider: 18:28 Date Seen: 10/03/22 Chief Complaint: Shortness of Breath/Dyspnea Stated Complaint: Shortness of breath, numbness in left arm Time Seen by Provider: 10/03/22 18:28 Source: patient Mode of arrival: ambulatory Limitations: no limitations History of Present Illness HPI Narrative: DEE DEE is a very pleasant 76-year-old gentleman with a history of diabetes, hyperlipidemia and 2 recent ED visits for shortness of breath who comes to the emergency room tonight the same. Patient notes that he was quite active today doing chores at home. Going up and down the stairs and doing laundry when he sat down and noticed that he was short of breath. He states he was breathing quite heavily and this lasted for about 15 minutes. He notes that he also had some arm weakness or discomfort but thought that perhaps it had to do with his blood pressure cough which she states is very tight. Here in the emergency room he has complete resolution of symptoms with note chest pain no shortness of breath no arm pain and feels normal. He states that he has been here twice before and they have not been able to find anything. He recently underwent pulmonary function test, echocardiogram and Holter monitor. He does not know the results of these findings. He is due to follow-up with Dr. Castelan his regular doctor from the [facility] on Friday. Casey has not had any recent illnesses cough cold congestion vomiting. He also denies any recent trauma. Related Data Home Medications Medication Instructions Recorded Confirmed blood sugar diagnostic (Contour #[id number] ea 06/29/22 09/19/22 Next Test Strips) finasteride 5 mg tablet 5 mg PO DAILY 06/29/22 10/03/22 losartan 25 mg tablet 25 mg PO DAILY 06/29/22 10/03/22 metronidazole 1 % topical gel ml topical 06/29/22 09/19/22 mupirocin 2 % topical ointment topical 06/29/22 09/19/22 niacin 500 mg tablet,extended 500 mg PO DAILY 06/29/22 10/03/22 release 24 hr simvastatin 20 mg tablet 20 mg PO DAILY 06/29/22 10/03/22 aspirin 81 mg chewable tablet 81 mg PO QDAY 09/19/22 10/03/22 metformin 1,000 mg tablet 1,000 mg PO BIDWMEAL 09/19/22 10/03/22 metoprolol succinate 100 mg 100 mg PO QDAY 09/19/22 10/03/22 tablet,extended release 24 hr Allergies Allergy/AdvReac Type Severity Reaction Status Date / Time No Known Drug Allergies Allergy Verified 10/03/22 17:53 Review of Systems Status of ROS: Reports: 10 or more systems reviewed and unremarkable except as noted in History and below Const: Denies: fever or chills Eyes: Denies: change in vision ENMT: Denies: throat pain, neck pain or throat swelling Cardio: Reports: shortness of breath with exertion; Denies: chest pain, palpitations, swelling of feet/ankles, lightheadedness or shortness of breath when lying down Resp: Reports: shortness of breath; Denies: cough GI: Denies: abdominal pain, nausea, vomiting or diarrhea Musculo: Denies: neck pain Neuro: Denies: headache, numbness in extremities or weakness in extremities Allergy/Immuno: Denies: throat swelling [facility]SH [facility] Medical History [facility] Social History Smoking Status: Never smoker Do you use any of these nicotine containing products: None Second hand tobacco smoke exposure: Yes How often do you have a drink containing alcohol: 2-4 times a month How many standard drinks containing alcohol do you have on a typical day: 1 or 2 How often do you have six or more drinks on one occasion: Never AUDIT-C Alcohol total score: 2 Non-prescribed substance use: denies use service: Yes Exam Narrative: Exam Narrative: Casey is alert and oriented. No acute distress. External ears eyes nose clear. Heart with regular rate and rhythm without murmur or rub. Lungs are clear to auscultation in all lung [place] abdomen soft nontender. Lower extremities with pedal pulses intact no significant edema. Moving all extremities. Const: Vital Signs, click to edit/add: Vital Signs - 24 hr 10/03/22 17:45 10/03/22 19:52 10/03/22 20:30 Temperature 96.8 F L Pulse Rate [Right Pulse Oximeter] 65 68 65 Respiratory Rate 16 18 20 Blood Pressure [Ri ght Upper Arm] 148/72 H 149/97 H 121/74 Pulse Oximetry 97 98 98 Oxygen Delivery Me thod Room Air Room Air Room Air Documenting provider has reviewed patient's vital signs: yes Course Course Hospital Course: Will repeat cardiac enzymes and EKG tonight. Will also check a D-dimer and magnesium. Along with CBC and comprehensive panel. COVID swab will also be done. Vital Signs Vital signs: Initial Vital Signs Temperature 96.8 F L 10/03/22 17:45 Temperature Source Temporal Artery Scan 10/03/22 17:45 Pulse Rate 65 10/03/22 17:45 Respiratory Rate 16 10/03/22 17:45 Blood Pressure 148/72 H 10/03/22 17:45 Blood Pressure Mean 97 10/03/22 17:45 Blood Pressure Position Sitting 10/03/22 17:45 Pulse Oximetry 97 10/03/22 17:45 Oxygen Delivery Method 10/03/22 17:45 Vital Signs Temperature 96.8 F L 10/03/22 17:45 Pulse Rate 65 10/03/22 17:45 Respiratory Rate 16 10/03/22 17:45 Blood Pressure 148/72 H 10/03/22 17:45 Pulse Oximetry 97 10/03/22 17:45 Oxygen Delivery Method 10/03/22 17:45 Temperature 96.8 F L 10/03/22 17:45 Pulse Rate 65 10/03/22 20:30 Respiratory Rate 20 10/03/22 20:30 Blood Pressure 121/74 10/03/22 20:30 Pulse Oximetry 98 10/03/22 20:30 Oxygen Delivery Method 10/03/22 20:30 MDM - SOB/Dyspnea MDM Narrative Medical decision making narrative: 1. Shortness of breath-resolved. At this time pulmonary function tests were reassuring as was an echocardiogram. I think ultimately patient needs a stress echo in order to evaluate. I suspect that he may have a fixed lesion and he is only asymptomatic when he is excessively active. He has had no elevated troponins to suggest heart damage or significant ischemia. He is to follow up with his primary MD at the [facility] on FridayOctober 07. We were able to access results of his recent tests and these were shared with him. Of course if he should have onset of pain or shortness of breath at rest we would want to cm in the ER. He is on aspirin daily. Patient had 2 reassuring EKGs with no acute ST or T-wave changes and 2 sets of cardiac enzymes 90 minutes apart both which were negative. 2. Disposition-patient is discharged home. Seek medical attention for worsening symptoms. Follow-up with primary MD. fortunately no evidence of COVID/influenza this evening. Medical Records Attestation: I reviewed the patient's medical records. Lab Data Attestation: I reviewed the patient's lab results. Labs: Lab Results 10/03/22 10/03/22 10/03/22 Range/Units 18:43 18:45 18:45 WBC 4.62 (4.50-11.00) K/uL RBC 4.70 (4.30-5.90) m/uL Hgb 14.5 (13.5-17.5) gm/dL Hct 42.7 (37.0-53.0) % MCV 91 (80-100) fL MCH 31 (26-34) pg MCHC 34 (32-36) gm/dL RDW Coeff of Kerry 12.5 (11.5-15.5) % Plt Count 163 (140-440) K/uL Neut % (Auto) 64.3 (42.0-72.0) % Lymph % (Auto) 24.0 (20-44) % Callaway % (Auto) 7.4 (0.0-11.0) % Eos % (Auto) 3.7 (0.0-7.0) % Baso % (Auto) 0.6 (0.0-3.0) % Neut # (Auto) 2.97 (1.7-7.0) K/uL Lymph # (Auto) 1.11 (0.90-2.90) K/uL Callaway # (Auto) 0.30 (0.00-0.90) K/UL Eos # (Auto) 0.17 (0.00-0.50) K/uL Baso # (Auto) 0.03 (0.00-0.30) K/uL D-Dimer Quant (PE/DVT) (0.00-0.50) ug/ml Sodium 139 (135-149) mmol/L Potassium 3.6 (3.6-5.1) mmol/L Chloride 106 (96-114) mmol/L Carbon Dioxide 24 (20-32) mmol/L BUN 18 (7-30) mg/dL Creatinine 0.9 (0.5-1.5) mg/dL Estimated Creat Clear 62.70 Estimated GFR 90 ml/min Glucose 92 (60-115) mg/dL Calcium 8.7 (8.4-10.6) mg/dL Magnesium 2.1 (1.5-2.6) mg/dL Total Bilirubin 0.6 (0.1-1.5) mg/dL AST 24 (12-35) U/L ALT 24 (4-50) U/L Alkaline Phosphatase 80 (40-150) U/L C-Reactive Protein < 0.5 L (0.5-1.0) mg/dL Total Protein 6.9 (6.0-8.3) g/dL Albumin 4.5 (3.3-5.0) g/dL SARS-CoV-2 (PCR) (Negative) Influenza Type A (PCR) (Negative) Influenza Type B (PCR) (Negative) RSV (PCR) (Negative) POC Troponin I 0.02 (0.01-0.04) ng/ml 10/03/22 10/03/22 10/03/22 Range/Units 18:45 18:45 20:15 WBC (4.50-11.00) K/uL RBC (4.30-5.90) m/uL Hgb (13.5-17.5) gm/dL Hct (37.0-53.0) % MCV (80-100) fL MCH (26-34) pg MCHC (32-36) gm/dL RDW Coeff of Kerry (11.5-15.5) % Plt Count (140-440) K/uL Neut % (Auto) (42.0-72.0) % Lymph % (Auto) (20-44) % Callaway % (Auto) (0.0-11.0) % Eos % (Auto) (0.0-7.0) % Baso % (Auto) (0.0-3.0) % Neut # (Auto) (1.7-7.0) K/uL Lymph # (Auto) (0.90-2.90) K/uL Callaway # (Auto) (0.00-0.90) K/UL Eos # (Auto) (0.00-0.50) K/uL Baso # (Auto) (0.00-0.30) K/uL D-Dimer Quant (PE/DVT) 0.29 (0.00-0.50) ug/ml Sodium (135-149) mmol/L Potassium (3.6-5.1) mmol/L Chloride (96-114) mmol/L Carbon Dioxide (20-32) mmol/L BUN (7-30) mg/dL Creatinine (0.5-1.5) mg/dL Estimated Creat Clear Estimated GFR ml/min Glucose (60-115) mg/dL Calcium (8.4-10.6) mg/dL Magnesium (1.5-2.6) mg/dL Total Bilirubin (0.1-1.5) mg/dL AST (12-35) U/L ALT (4-50) U/L Alkaline Phosphatase (40-150) U/L C-Reactive Protein (0.5-1.0) mg/dL Total Protein (6.0-8.3) g/dL Albumin (3.3-5.0) g/dL SARS-CoV-2 (PCR) Negative SARS-CoV-2 (Negative) Influenza Type A (PCR) Negative PCR FLU A (Negative) Influenza Type B (PCR) Negative PCR FLU B (Negative) RSV (PCR) Negative PCR RSV (Negative) POC Troponin I 0.00 L (0.01-0.04) ng/ml ECG Data Attestation: I personally reviewed and interpreted this ECG as follows: ECG interpretation date: 10/03/22 Interpretation: EKG 1. By my read shows sinus rhythm at a rate of 72. Occasional single PVC noted. No acute ST or T-wave changes noted EKG 2. By my read shows sinus rhythm with a heart rate of 65. No acute ST or T-wave changes are noted. Discharge Plan Discharge Clinical Impression: Shortness of breath Patient Disposition: Home, Self-Care Condition: Unchanged Additional Instructions: Results of your pulmonary function test, Holter monitor and echocardiogram were all reassuring. 2-heart tests were done tonight and EKGs were within normal limits. I do suggest following up with your regular doctor. I am thinking that a stress test would be appropriate for you. Prescriptions: No Action mupirocin 2 % ointment topical Label Comments: APPLY TO EXCISION SITE 1-2 TIMES DAILY UNTIL WELL HEALED metronidazole 1 % gel topical (DME) Contour Next Test Strips Strip See Rx Instructions .ROUTE .MEDSUPPLY Qty: 10 Label Comments: TEST THREE TIMES DAILY DIRECTED Rx Instructions: As directed losartan 25 mg tablet 25 mg PO DAILY Label Comments: TAKE 1 TABLET BY MOUTH ONCE DAILY. finasteride 5 mg tablet 5 mg PO DAILY niacin 500 mg tablet extended release 24 hr 500 mg PO DAILY Label Comments: TAKE 1 TABLET BY MOUTH AT BEDTIME. simvastatin 20 mg tablet 20 mg PO DAILY Label Comments: TAKE 1 TABLET BY MOUTH ONCE DAILY WITH EVENING MEAL. metformin 1,000 mg tablet 1,000 mg PO BIDWMEAL metoprolol succinate 100 mg tablet extended release 24 hr 100 mg PO QDAY Label Comments: TAKE 1 TABLET BY MOUTH ONCE DAILY. aspirin 81 mg tablet,chewable 81 mg PO QDAY Follow Up/Referrals: Christofer Castelan MD [Primary Care Provider] - Stand Alone Forms: [employer] Info Instructions
[2022-10-03 19:08] LABS: Troponin, Point-of-Care* 0.02 ng/ml (0.01-0.04)
[2022-10-03 19:13] LABS: Basophils Absolute Auto 0.03 K/uL (0.00-0.30); Basophils Percent Auto 0.6 % (0.0-3.0); Eosinophils Absolute Auto 0.17 K/uL (0.00-0.50); Eosinophils Percent Auto 3.7 % (0.0-7.0); Hematocrit 42.7 % (37.0-53.0); Hemoglobin* 14.5 gm/dL (13.5-17.5); Lymphocytes Absolute Auto 1.11 K/uL (0.90-2.90); Mean Corpuscular HGB Conc 34 gm/dL (32-36); Mean Corpuscular Hemoglobin 31 pg (26-34); Mean Corpuscular Volume 91 fL (80-100); Monocytes Percent Auto 7.4 % (0.0-11.0); Neutrophils Absolute Auto 2.97 K/uL (1.7-7.0); Neutrophils Percent Auto 64.3 % (42.0-72.0); Platelet Count* 163 K/uL (140-440); RDW Coefficient of Variation % 12.5 % (11.5-15.5); White Blood Count* 4.62 K/uL (4.50-11.00)
[2022-10-03 19:15] LABS: Slide Review Reflex No
[2022-10-03 19:27] LABS: Chloride* 106 mmol/L (96-114); Sodium* 139 mmol/L (135-149)
[2022-10-03 19:28] LABS: Albumin* 4.5 g/dL (3.3-5.0); Potassium* 3.6 mmol/L (3.6-5.1)
[2022-10-03 19:31] LABS: Alanine Aminotransferase* 24 U/L (4-50); Alkaline Phosphatase* 80 U/L (40-150); Aspartate Amino Transferase* 24 U/L (12-35); Bilirubin Total* 0.6 mg/dL (0.1-1.5); Blood Urea Nitrogen* 18 mg/dL (7-30); Carbon Dioxide* 24 mmol/L (20-32); Creatinine* 0.9 mg/dL (0.5-1.5); Estimated Glomerular Filt Rate 90 ml/min; Total Protein* 6.9 g/dL (6.0-8.3)
[2022-10-03 19:32] LABS: Calcium* 8.7 mg/dL (8.4-10.6); Glucose* 92 mg/dL (60-115)
[2022-10-03 19:34] LABS: C Reactive Protein* < 0.5 mg/dL (0.5-1.0)
[2022-10-03 19:52] VITALS: BP 149/97; PULSE 68; RESP 18; O2SAT 98
[2022-10-03 19:54] LABS: PCR FLU A Negative PCR FLU A (Negative); PCR FLU B Negative PCR FLU B (Negative); PCR RSV Negative PCR RSV (Negative)
[2022-10-03 19:58] LABS: SARS PCR* Negative SARS-CoV-2 (Negative)
[2022-10-03 20:16] LABS: Magnesium* 2.1 mg/dL (1.5-2.6)
[2022-10-03 20:20] LABS: D Dimer Quantitative* 0.29 ug/ml (0.00-0.50)
[2022-10-03 20:30] VITALS: BP 121/74; PULSE 65; RESP 20; O2SAT 98
== END 2022-10-03 20:55 | disposition home or self-care (01) ==
PROVIDERS: Emergency Provider Family Medicine; PCP Family Medicine
DX: R06.02 Shortness of breath (principal)
CPT/HCPCS: 36415; 80053; 83735; 84484; 85025; 85379; 86140; 87502; 87634; 87635; 93005; 99284; 99285

== ENCOUNTER 2024-03-09 13:42 | Emergency (ER) | payer MEDICARE, BC, SELFPAY ==
[2024-03-09 13:47] VITALS: BP 147/88; PULSE 62; RESP 16; TEMP 36.6; O2SAT 98; BMI 31.5
--- NOTE | 2024-03-09 14:15 | ED_ITS ---
HPI - SOB/Dyspnea General Time Seen by Provider: 14:16 Date Seen: 03/09/24 Chief Complaint: Shortness of Breath/Dyspnea Stated Complaint: Shortness of breath Time Seen by Provider: 03/09/24 14:03 Source: patient, RN notes reviewed and old records reviewed (in our system, unable to log into [employer] at this time) Mode of arrival: ambulatory Limitations: no limitations History of Present Illness HPI Narrative: This 78-year-old male is ambulatory into the ED after being directed here from clinic. He notes that especially today when he woke up, was feeling like it was just more difficult to breathe. He notes he did not sleep well last night, awoke just feeling like his breathing was more difficult. He is not noticing this with exertion, did his normal routine walk and had no increase in symptoms. He is noticing it more at rest. Feels like it is just more difficult to breathe. He does have a history of nasal congestion, did have problems over the winter and Dr. Castelan did have him get a nasal steroid. He he ran out of this bottle last week, it did state to not use over 6 months without talking to your doctor. Did just pick a new bottle up yesterday. There may be some nasal congestion. There is no chest pain. He is not feeling any shortness of breath now here. He does admit when he was sitting at home prior to calling, his house was more humid. He was sitting in his chair and felt like it was more difficult to get a breath or breathe, was tired in felt like he was not going to be able to laid down to take a nap due to his symptoms. He does not feel it now being in our facility. He is worried as he is going to travel in a month. He denies any chronic heart issues, no history of blood clots before. He did travel via plane to [place] a month ago. He has had no leg swelling or calf pain. Denies any history of chronic seasonal allergies. He is not coughing, no fevers or chills. He does state he was here couple years ago and had testing that may have been related to his heart. Looking in our records, he was evaluated 3 times in September of 2022 for concerns of dyspnea and shortness of breath. In those visits, note he had similar symptoms where he was noting this at rest. One of the notes documents a normal stress test done in 2019. He had Holter monitoring done in 2021, no significant concerns. He did have an echo in 2021 outside of moderately increased wall thickness, echo overall looked good, is in our system. Nonsmoker. He has a past medical history reported the of hyperlipidemia and hypertension. MD elicited complaint: shortness of breath Related Data Home Medications ?Medication ?Instructions ?Recorded ?Confirmed blood sugar diagnostic (Contour #[id number] ea 06/29/22 09/19/22 Next Test Strips) finasteride 5 mg tablet 5 mg PO DAILY 06/29/22 03/09/24 losartan 25 mg tablet 25 mg PO DAILY 06/29/22 03/09/24 metronidazole 1 % topical gel ml topical 06/29/22 09/19/22 niacin 500 mg tablet,extended 500 mg PO DAILY 06/29/22 03/09/24 release 24 hr simvastatin 20 mg tablet 20 mg PO DAILY 06/29/22 03/09/24 aspirin 81 mg chewable tablet 81 mg PO QDAY 09/19/22 03/09/24 metformin 1,000 mg tablet 1,000 mg PO BIDWMEAL 09/19/22 03/09/24 metoprolol succinate 100 mg 100 mg PO QDAY 09/19/22 03/09/24 tablet,extended release 24 hr Allergies Allergy/AdvReac Type Severity Reaction Status Date / Time No Known Drug Allergies Allergy Verified 03/09/24 13:51 Review of Systems Status of ROS: Reports: 6 or more systems reviewed and unremarkable except as noted in History and below [facility] Medical History Balanitis Social History Smoking Status: Never smoker Do you use any of these nicotine containing products: None Second hand tobacco smoke exposure: Yes How often do you have a drink containing alcohol: 2-4 times a month How many standard drinks containing alcohol do you have on a typical day: 1 or 2 How often do you have six or more drinks on one occasion: Never AUDIT-C Alcohol total score: 2 Non-prescribed substance use: denies use service: Yes Exam Const: Vital Signs, click to edit/add: Vital Signs - 24 hr 03/09/24 13:47 03/09/24 14:33 Temperature 97.8 F Pulse Rate [Pulse Oximeter] 62 Respiratory Rate 16 Blood Pressure [Ri [facility] [place]] 147/88 H Pulse Oximetry 98 97 Oxygen Delivery Me thod Room Air Patient is alert, interactive, no apparent distress. Sitting in the chair in exam room 2. Able to speak in complete sentences, voice is normal. Pupils equal round, sclera clear, conjugate gaze. Neck is supple, no jugular venous distension, no cervical adenopathy, no thyromegaly masses or nodules. His lungs are clear, good air entry, no wheezing or crackles. CV regular rate and rhythm, no murmur, normal S1-S2, no S3-S4. Abdomen is soft, no rebound or guarding, no organomegaly. He has absolutely no lower extremity edema. Patient is ambulatory into the ED of his own accord. Documenting provider has reviewed patient's vital signs: yes Course Course ED Course: Patient does have a history of some nasal congestion, has been off his nasal steroid. His shortness of breath is interestingly noted when he is at rest, he does not feel it with exertion. Will look at EKG, chest x-ray and appropriate labs. In review of our history, seems to be similar with his complaints 2 years ago and he did have negative workup from what I can see from those visits. Will consider cardiac etiologies such as infection in the lungs, pulmonary emboli, congestive heart failure, ischemic disease. I do think that it is unlikely to be any of these emergent conditions but will evaluate. It is likely that he will need to follow up in clinic. Have discussed with him that it is certainly safe for him to use the nasal steroid until he talks his primary provider next. Reevaluation(s) Time of Reevaluation #1: 16:32 Reevaluation #1: Reviewed with patient that workup is negative, no concerning etiology for shortness of breath. Will discharge to home. He notes that he has slept here, feels no symptoms since arriving here. He thinks that he may turn on his air conditioning at home and see if this helps. Vital Signs Vital signs: Initial Vital Signs Temperature 97.8 F 03/09/24 13:47 Temperature Source Temporal Artery Scan 03/09/24 13:47 Pulse Rate 62 03/09/24 13:47 Pulse Rhythm Regular 03/09/24 13:47 Respiratory Rate 16 03/09/24 13:47 Blood Pressure 147/88 H 03/09/24 13:47 Blood Pressure Mean 107 H 03/09/24 13:47 Blood Pressure Position Sitting 03/09/24 13:47 Pulse Oximetry 98 03/09/24 13:47 Oxygen Delivery Method Room Air 03/09/24 13:47 Vital Signs Temperature 97.8 F 03/09/24 13:47 Pulse Rate 62 03/09/24 13:47 Respiratory Rate 16 03/09/24 13:47 Blood Pressure 147/88 H 03/09/24 13:47 Pulse Oximetry 98 03/09/24 13:47 Oxygen Delivery Method Room Air 03/09/24 13:47 Temperature 97.8 F 03/09/24 13:47 Pulse Rate 62 03/09/24 13:47 Respiratory Rate 16 03/09/24 13:47 Blood Pressure 147/88 H 03/09/24 13:47 Pulse Oximetry 97 03/09/24 14:33 Oxygen Delivery Method Room Air 03/09/24 13:47 MDM - SOB/Dyspnea Lab Data Attestation: I reviewed the patient's lab results. Labs: Lab Results 03/09/24 Range/Units 14:48 WBC 5.42 (4.50-11.00) K/uL RBC 5.01 (4.30-5.90) m/uL Hgb 15.1 (13.5-17.5) gm/dL Hct 46.0 (37.0-53.0) % MCV 92 (80-100) fL MCH 30 (26-34) pg MCHC 33 (32-36) gm/dL RDW Coeff of [place] 12.5 (11.5-15.5) % Plt Count 165 (140-440) K/uL Neut % (Auto) 66.2 (42.0-72.0) % Lymph % (Auto) 19.9 L (20-44) % [place] % (Auto) 9.8 (0.0-11.0) % Eos % (Auto) 3.5 (0.0-7.0) % Baso % (Auto) 0.6 (0.0-3.0) % Neut # (Auto) 3.59 (1.7-7.0) K/uL Lymph # (Auto) 1.10 (0.90-2.90) K/uL [place] # (Auto) 0.50 (0.00-0.90) K/UL Eos # (Auto) 0.19 (0.00-0.50) K/uL Baso # (Auto) 0.03 (0.00-0.30) K/uL Abs Immat Gran (auto) 0.00 (0.00-0.30) K/uL Imm/Tot Granulo (auto) 0.0 % D-Dimer Quant (PE/DVT) 0.16 (0.00-0.50) ug/ml Sodium 140 (135-149) mmol/L Potassium 3.9 (3.6-5.1) mmol/L Chloride 105 (96-114) mmol/L Carbon Dioxide 29 (20-32) mmol/L Anion Gap 6 L (7-15) mEq/L BUN 20 (7-30) mg/dL Creatinine 0.8 (0.5-1.5) mg/dL Estimated Creat Clear 60.80 Estimated GFR 92 ml/min Glucose 102 (60-115) mg/dL Calcium 9.2 (8.4-10.6) mg/dL Total Bilirubin 0.8 (0.1-1.5) mg/dL AST 30 (12-35) U/L ALT 30 (4-50) U/L Alkaline Phosphatase 67 (40-150) U/L Troponin I < 0.01 L (0.01-0.04) ng/mL NT-Pro-B Natriuret Pep 162 pg/mL Total Protein 8.0 (6.0-8.3) g/dL Albumin 4.9 (3.3-5.0) g/dL SARS-CoV-2 (PCR) Negative SARS-CoV-2 (Negative) Influenza Type A (PCR) Negative PCR FLU A (Negative) Influenza Type B (PCR) Negative PCR FLU B (Negative) RSV (PCR) Negative PCR RSV (Negative) Imaging Data Chest x-ray: Attestation: I have reviewed the pertinent imaging results. Radiologist's impression: Patient: SAMUEL COLLIER Facility:?[facility] Patient ID:?[id number] Site Patient ID:?[id number]. Site :?04/26/1950 Study:?CT-Head WITHOUT-03/09/2024 2:41:19 PM Ordering Physician:Heide Mejia Final Report: INDICATION: Severe headache, nausea, history of prostate cancer COMPARISON: None. TECHNIQUE: CT of the head without contrast. Multiplanar reformats are included. FINDINGS: No intracranial hemorrhage. Age-related parenchymal volume loss. No acute or subacute cortically based infarct. Normal appearance of the white matter. No mass or mass effect. Normal ventricles. No skull fractures. No worrisome focal bone lesion. IMPRESSION: No acute intracranial findings. Please note that all CT scans at this facility use dose modulation, iterative reconstruction, and/or weight-based dosing when appropriate to reduce radiation dose to as low as reasonably achievable. Dictated by Krystin Mota MD @ 03/09/2024 2:51:14 PM (Electronic Signature) Discharge Plan Discharge Clinical Impression: Shortness of breath Patient Disposition: Home, Self-Care Condition: Stable Instructions: Shortness of Breath (ED) Additional Instructions: Your workup here today is not showing any acute or emergent condition as a cause for the shortness of breath. Given that you are not noticing these symptoms with exercise or activity, that actually is really reassuring. I would recommend that you try the nasal steroid, follow bottle directions for dosing on this. Schedule a clinic followup for recheck. In the meantime, if you have worsening shortness of breath, noticing shortness of breath with exertion, develops fever cough, have chest pain, do recommend re-evaluation. Activity Level: Activity as Tolerated Prescriptions: No Action metronidazole 1 % gel topical (DME) Contour Next Test Strips Strip See Rx Instructions .ROUTE .MEDSUPPLY Qty: 10 Patient Comments: TEST THREE TIMES DAILY DIRECTED Rx Instructions: As directed losartan 25 mg tablet 25 mg PO DAILY Patient Comments: TAKE 1 TABLET BY MOUTH ONCE DAILY. finasteride 5 mg tablet 5 mg PO DAILY niacin 500 mg tablet extended release 24 hr 500 mg PO DAILY Patient Comments: TAKE 1 TABLET BY MOUTH AT BEDTIME. simvastatin 20 mg tablet 20 mg PO DAILY Patient Comments: TAKE 1 TABLET BY MOUTH ONCE DAILY WITH EVENING MEAL. metformin 1,000 mg tablet 1,000 mg PO BIDWMEAL metoprolol succinate 100 mg tablet extended release 24 hr 100 mg PO QDAY Patient Comments: TAKE 1 TABLET BY MOUTH ONCE DAILY IN EVENING. 25MG PO IN AM aspirin 81 mg tablet,chewable 81 mg PO QDAY Follow Up/Referrals: Labenski,Christofer E, MD [Primary Care Provider] - Stand Alone Forms: [email or web address] Info Instructions
[2024-03-09 14:33] VITALS: O2SAT 97
--- NOTE | 2024-03-09 14:33 | CRLHL7_ITS ---
For Patients: As a result of the Century Cures Act, medical imaging exams and procedure reports are released immediately into your electronic medical record. You may view this report before your referring provider. If you have questions, please contact your health care provider. Indication: Dyspnea at rest Comparison: None available. Technique: Single AP view chest Findings: There is hyperinflation and chronic interstitial change. There is no focal consolidation, effusion, or pneumothorax. The cardiomediastinal silhouette is within normal limits. The bony thorax is grossly intact. Impression: No acute cardiopulmonary abnormality. Dictated by Felix Charles MD @ 03/09/2024 3:23:46 PM (Electronically Signed)
[2024-03-09 15:00] VITALS: BP 136/78; PULSE 57; RESP 14; O2SAT 98
--- OUTSIDE RECORDS SUMMARY | 2024-03-09 15:06 | XMS_ITS | Clinical Summary ---
Author Organization [facility] Address [place], [place] [address] Care Team Providers Care Net Repairer Name Role Phone Christofer Castelan MD Primary Care Provider [phone] Allergies Active Allergy Reactions Criticality Noted Date Comments Ibuprofen Angioedema 05/20/2023 Bilateral ankle swelling Lisinopril Cough 01/20/2007 Medications Medication Sig Dispensed Refills Start Date End Date Status ASPIRIN 81 MG TAB take 1 tablet (81mg) by oral route once daily 0 05/20/2007 Active MULTIVITAMIN ORAL Once daily 0 09/28/2008 Active Blood Pressure Test Kit-Large (QUICK RESPONSE BP MONITOR) kitIndications:Unspe cified essential hypertension As directed. Automatic arm cuff. Diagnosis 401.0 1 Kit 0 03/18/2014 Active metroNIDAZOLE (METROGEL) 1 % gelIndications:Rosac ea Apply topically to affected area(s) 2 times daily. 45 g 0 06/10/2016 Active ACCU-CHEK GUIDE GLUCOSE METERIndications:Imp aired fasting glucose USE TO TEST TWICE A DAY 1 Kit 09/29/2020 Active cholecalciferol (Vitamin D-3) 2,000 unit capsule Take 1 Capsule (2,000 units) by mouth once daily. 90 Capsule 3 03/02/2021 Active finasteride (PROSCAR) 5 mg tabletIndications:BP H without urinary obstruction Take 1 Tablet (5 mg) by mouth once daily. 90 Tablet 3 07/29/2023 Active losartan (COZAAR) 25 mg tabletIndications:Es sential hypertension Take 1 Tablet (25 mg) by mouth once daily. 90 Tablet 4 07/29/2023 Active metFORMIN (GLUCOPHAGE) 1,000 mg tabletIndications:Pr ediabetes Take 1 Tablet (1,000 mg) by mouth two times daily with meals. 180 Tablet 4 07/29/2023 Active metoprolol succinate (TOPROL XL) 100 mg Sustained-Release tabletIndications:Es sential hypertension Take 1 Tablet (100 mg) by mouth once daily. 90 Tablet 4 07/29/2023 Active metoprolol succinate (TOPROL XL) 25 mg Sustained-Release tabletIndications:Sy mptomatic PVCs Take 1 Tablet (25 mg) by mouth once daily. 90 Tablet 3 07/29/2023 Active simvastatin (ZOCOR) 10 mg tabletIndications:Mi xed hyperlipidemia Take 1 Tablet (10 mg) by mouth once daily with evening meal. 90 Tablet 3 07/29/2023 Active niacin ER (NIASPAN) 500 mg Sustained-Release tabletIndications:Mi xed hyperlipidemia TAKE 1 TABLET (500 MG) BY MOUTH AT BEDTIME. 90 Tablet 4 11/14/2023 Active loratadine (CLARITIN) 10 mg tablet Take 10 mg by mouth once daily. Active blood sugar diagnostic (Contour Next Test Strips) stripIndications:Typ e 2 diabetes mellitus without complication, without long-term current use of insulin (HC) Dispense item covered by pt ins. E11.9 NIDDM type II - Test 2 times/day. Reason: Hypoglycemia 300 Each 6 02/03/2024 Active Active Problems Problem Noted Date Diagnosed Date BPH without urinary obstruction 07/29/2023 Depression, recurrent 07/29/2023 COVID-19 05/13/2022 Type 2 diabetes mellitus wit hout complication, without long-term current use of insulin 03/13/2022 Overview: Very well controlled on Metformin 1000 mg twice daily. 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 Provide interventions aimed at treatment of new or reversible illness/injury or non-life threatening chronic conditions. Duration of invasive or uncomfortable interventions should generally be limited. Colon polyp 08/27/2011 Overview: Colonoscopy 08/2011 polyp, diverticulosis repeat in 5 years Colonoscopy 08/2016 polyp repeat in 5 years Colonoscopy 08/2021 TA, repeat in 7 years with propofol Special screening for malignant neoplasm of pros ocampo 04/14/2008 Unspecified essential hypertension 01/20/2007 Mixed hyperlipidemia 01/20/2007 Obesity, unspecified 01/20/2007 Routine general medical exam ination at a health care facility 01/20/2007 Overview: colonoscopy 11/01/2005 Recheck 5 yrs. Encounters Date Type Department Care Team Description 03/09/2024 Nurse Triage [place] [address] [facility] [place] [address] Christofer Castelan MD Shortness Of Breath 03/03/2024 8:30 AM CDT Nurse/Clinic Staff Only [address] [place] [address] Testing (HST Return/Download) 03/02/2024 1:45 PM CDT Nurse/Clinic Staff Only [place] [address] [place] [address] Testing (HST Download ) 03/02/2024 Procedure Only [place] [address] [place] [address] Nilesh Phelps MD Results (HST) 03/02/2024 Travel 02/23/2024 1:30 PM CDT Office Visit [facility] [place] [address] Nilesh Phelps MD Sleep Consult 02/23/2024 Travel 02/03/2024 1:55 PM CDT Office Visit [facility] [address] [place] [address] Christofer Castelan MD Diabetes (Routine follow up) 02/03/2024 Travel 01/26/2024 7:00 AM CDT Orders Only [facility] [address] [place] [address] [place], [place] [facility] 01/26/2024 Travel from Last 3 Months Immunizations Name Administration Dates Next Due AMB Influenza, IIV3 (Age >=3 years)(Flu Clinic Only) 07/14/2013,09/19/2009,09/19/2009,09/09 Amb Influenza, Inact (High-d ose) (Flu Clinic Only) 07/25/2014 COVID-19 Vaccine Spikevax (M oderna 50mcg/0.5mL) 12YO+ [id number] Formula PF 07/01/2023 COVID-19 vaccine (Pfizer-Bio NTech 30mcg/0.3mL) 12YO+ BIVALENT PF, MDV 07/19/2022 COVID-19 vaccine (Pfizer-Bio NTech 30mcg/0.3mL) 12YO+ RAMILA-SUCROSE PF, MDV 02/06/2022 COVID-19 vaccine (Pfizer-Bio NTech 30mcg/0.3mL) PF, MDV 12/26/2020,12/05/2020 HepA-HepB (Twinrix) 09/09/2005,11/13/2004,2003 Influenza A (H1N1), Inactivated 10/05/2009 Influenza A (H1N1), Inactiva fabi (Age >=3 Years) 10/05/2009 Influenza, High-dose Inactivated 017,07/08/2016,07/19/2015,07/25 Influenza, High-dose Quadriv alent Inactivated 06/24/2023 Influenza, IIV3 (Age 6-35 mos) 07/31/2011,2008 Influenza, IIV3 (Age >=3 years) 07/14/20 13,06/22/2012,07/31/2011,07/30,09/09/2008,09/28/2007,09/11/2006 ,09/09/2005,08/23/2003 Influenza, Inactivated AIIV4 (Age 65+ Years) Preserv Free 07/26/2022,07/23/2021,06/30/2020 Influenza, Inactivated IIV3 (Age 65+ Years) Preserv Free 06/30/2019,07/03/2018 Pneumococcal Poly,23-Valent (Pneumovax) 10/26/2012 Pneumococcal conj 13-Valent (Prevnar 13) 06/07/2015 RSV, Recombinant ADJ Reconst ituted (Arexvy 120MCG/0.5mL) 06/27/2023 Td (Age >=7 Years) 11/13/2004,01/29/1996 Tdap 12/09/2011 Zoster (Shingrix-RZV, recombinant) 10/10/2018, Zoster (Zostavax-ZVL, live) 09/28/2007 Family History Medical History Relation Name Comments Cancer Brother 2 Kan lung Brain cancer Brother 4 Man of Glio at 60 Arthritis Father Patrick Asthma Father Patrick Heart Disease Father Patrick Atrial Fibrill ation Heart failure Father Patrick of this a t 90 Stroke Father Patrick Stroke Blood Disease Mother Lizzeth Bentley's Granu lomatosis Cancer-breast Mother Lizzeth Heart Disease Mother Lizzeth Atrial Fibrill ation/PR, of this at 90 Hypertension Mother Lizzeth Anesthesia Problem No Family History Relation Name Status Comments Brother 1 Christofer Alive Brother 2 Kan Alive Brother 3 Shayan Alive Brother 4 Man Father Patrick Mother Lizzeth Sister Sintia Alive Social History Tobacco Use Types Packs/Day Years Used Date Smoking Tobacco: Never Passive Smoke Exposure: Never Smokeless Tobacco: Never Tobacco Cessation:Counseling Given: Yes Alcohol Use Standard Drinks/Week Comments Not Currently 0 (1 standard drink = 0.6 oz pur e alcohol) PHQ-2 Answer Date Recorded PHQ-2 TOTAL SCORE 0 07/29/2023 Social Connections Answer Date Recorded Frequency of Communication with Friends and Fami ly 0 03/08/2023 Financial Resource Strain Answer Date R ecorded Difficulty of Paying Living Expenses 3 03/08/2023 Difficulty of Paying Living Expenses Not on file 03/08/2023 Food Insecurity Answer Date Recorded Worried About Running Out of Food in the Last Ye ar 1 03/08/2023 Transportation Needs Answer Date Record ed Lack of Transportation (Medical) 1 03/08/2023 Housing Stability Answer Date Recorded Unable to Pay for Housing in the Last Year 1 03/08/2023 Sex and Gender Information Value Date Recorded Sex Assigned at Not on file Gender Identity Not on file Sexual Orientation Not on file Obstetrics History Last Filed Vital Signs Vital Sign Reading Time Taken Comments Blood Pressure 114/70 02/23/2024 1:23 PM CDT Pulse 57 02/23/2024 1:23 PM CDT Temperature 36.6 ??C (97.8 ??F) 11/17/2023 1:53 PM CS T Respiratory Rate 18 08/29/2023 1:49 PM FOURTH MATE Oxygen Saturation 99% 02/23/2024 1:23 PM CDT Inhaled Oxygen Concentration - - Weight 94.7 kg (208 lb 12.8 oz) 02/23/2024 1:23 PM CDT Height 171.5 cm (5' 7.52) 02/23/2024 1:23 PM CD T Body Mass Index 32.2 02/23/2024 1:23 PM CDT Plan of Treatment Upcoming Encounters Date Type Department Care Team (Late st Contact Info) Description 06/10/2024 1:30 PM CDT Office Visit [facility] [address] [place] [address] Nilesh Phelps MD [address] [place] [address] 07/28/2024 7:00 AM CDT Orders Only [facility] [address] [place] [address] [place], [place] 07/30/2024 2:20 PM CDT Office Visit [facility] [address] [place] [address] Christofer Castelan MD [address] [place] [address] Health Maintenance Due Date Last Done Comments Tetanus booster 12/09/2021 12/09/2011, 10/2004, 01/29/1996 Influenza for age 65+ 06/13/2024 06/24/2023 , 07/26/2022, 07/23/2021, Additional history exists Depression screening for age 12+ 07/29/2024 07/29/2023, 08/30/2022, 07/26/2022, Additional history exists Medicare Wellness for age 65+ 07/29/2024, 07/26/2022, 07/23/2021, Additional history exists BMI (ht and wt on same day) for age 18+ 02/22/2025 02/23/2024, 02/03/2024, 07/29/2023, Additional history exists Tdap Completed 12/09/2011 Pneumococcal series for age 65+ Completed 5, 10/26/2012 Zoster (shingles) series for age 50+ Completed 10/10/2018, 07/06/2018, 09/28/2007 Hepatitis C screening for ag e 18-79 Completed 03/12/2022 COVID-19 vaccine series Completed 12/30/19, 07/01/2023, 07/19/2022, Additional history exists Procedures Procedure Name Priority Date/Time Associated Diagnosis Comments HOME SLEEP TEST TYPE 3 PORTABLE Routine 03/02/2024 11:59 PM CDT LORA (obstructive sleep apnea) URINE ALBUMIN TO CREATININE RATIO, RANDOM Routine 01/26/2024 7:13 AM CDT Type 2 diabetes mellitus without complication, without long-term current use of insulin (HC) PSA TOTAL SCREEN Routine 01/26/2024 7:07 AM CDT Prostate cancer screening HEMOGLOBIN A1C Routine 01/26/2024 7:07 AM CDT Type 2 diabetes mellitus without complication, without long-term current use of insulin (HC) LIPID PANEL W REFLEX MEASURED LDL Routine 01/26/2024 7:07 AM CDT Type 2 diabetes mellitus without complication, without long-term current use of insulin (HC) BASIC METABOLIC PANEL Routine 01/26/2024 7:07 AM CDT Type 2 diabetes mellitus without complication, without long-term current use of insulin (HC) ANTI HCV Add On 03/12/2022 2:56 PM CDT Need for hepatitis C screening test from Last 3 Months or Most Recently Relevant to Health Maintenance Results * HOME SLEEP TEST TYPE 3 PORTABLE (03/02/2024 11:59 PM CDT) Narrative Nilesh Phelps MD - 03/02/2024 11:59 PM CDT Nilesh Phelps MD ? 03/03/2024 ??1:11 PM Home Sleep Test Name: ??Lloyd Preez Location: ??[facility] Study notes: This is a single night home sleep apnea test. The study is performed in the context of a clinical suspicion for sleep apnea. Lloyd Perez ( 1945) is studied using a T3 Device using nasal pressure transducer, thoracoabdominal respiratory impedance plethysmography belts, pulse oximetry, snore microphone and actigraphy for body position. ??The study is scored by a RPSGT and interpreted by a Diplomate of the [place] [employer]. ??An [id number] review of the data has been performed by the interpreting physician. Scored following the most current version of the AASM Manual for the Scoring of Sleep and Associated Events. Respiratory Event Index (LIZET) ??Oxygen Desaturation Index (MELINDA) REI4% ??11.3 ??ODI4%: ??9.7 Supine LIZET: 41.6 ??ODI3%: ??9.7 Lateral LIZET: 0.6 ??Lan Saturation 85 % ?? Time Below 88% 28.5 ??minutes ?? Weight: Wt Readings from Last 1 Encounters: 02/23/24 94.7 kg (208 lb 12.8 oz) Other data: Recording Duration: 435.0 minutes Time in Bed: ??423.2 minutes Estimated sleep efficiency [%]: 96 % Oximeter Quality: 100.0 % Flow Quality: 100.0 % RIP Quality: 100.0 % Supine time: 108.3 minutes Average SpO2: 91.7 % Pulse Average: 54.7 bpm Additional Comments: None IMPRESSION: Obstructive Sleep Apnea (327.23, G47.33) RECOMMENDATIONS: - Mild sleep apnea is discovered- his events are positional with severe sleep apnea in a supine position. ??If there is low clinical suspicion of sleep apnea, this could be a false positive. ??Polysomnography could be considered. - Mild sleep apnea only needs treatment in the presence of attributable sleepiness. ??In the absence of symptoms, treatment may not be indicated. ??Clinical correlation is recommended. - Treatment options for mild sleep apnea include CPAP, a mandibular advancement device, lifestyle modifications such as weight loss, sedative/alcohol avoidance, avoiding supine sleep and surgical therapies can be considered in highly selected patients. - Treatment for obstructive sleep apnea is recommended and CPAP would generally be considered first-line therapy for this severity of sleep apnea. ??Consider auto-titrating CPAP 5-20 cm. - Follow-up with a provider to discuss results is recommended. - Patients should be advised to avoid critical tasks, such as driving, whenever drowsy. - Patients should try to achieve at least 7-8 hours of sleep on a consistent basis. - The LIZET is a surrogate for AHI. ??For reimbursement and/or prior authorization purposes, it would be appropriate to list the LIZET as an AHI when the latter is accepted, but not the former. Nilesh Phelps M.D. Diplomate, Board of Sleep Medicine Recording Information Recording Date: 03/02/2024 ??Analysis Start Time: 10:41 PM Recording Tags: ?? Analysis Stop Time: 5:44 AM Device Type: T3S ??Analysis Duration (TRT): 7h 3m ?? Est. Total Sleep Time: 6h 55m Position and Analysis Time Duration Percentage Supine (in TST): 108.3 m 26 % Non-Supine (in TST): 307.4 m 73.9 % Upright (in TRT): 7.4 m 1.8 % Movement (in TST): 16.9 m 4.1 % Invalid Data (Excluded): 0 m 0 % Respiratory Indices Index ?? Total ??Supine ??Non-supine Count Apneas + Hypopneas (AH): 11.3 /h 41.6 /h 0.6 /h 78 Apneas: 8.5 /h 32.7 /h 0 /h 59 Obstructive (OA): 8.5 /h 32.7 /h 0 /h 59 Mixed (MA): 0 /h 0 /h 0 /h 0 Central (CA): 0 /h 0 /h 0 /h 0 Hypopneas: ??2.7 /h 8.9 /h 0.6 /h 19 Respiration Rate (per m): 15.1 /m 15.4 /m 15 /m ?? Percentage of Sleep Duration Snore: 10.2 % 18.7 % 7.2 % 42.5 m Flow Limitation: 0 % 0 % 0 % 0 m Average Snore Volume 69.7 dB Percent of time greater than 80dB: Percent of 7.1 % Oxygen Saturation (SpO2) Total Supine ?Non-supine Oxygen Desaturation Index (MELINDA): 9.7 /h ??33.8 /h 1.2 /h Average SpO2: 91.7 % ??90.2 % 92.3 % Minimum SpO2: 85 % ??85 % 88 % SpO2 Duration < 90% 11.7 % (48.7m) 41.6 % 1.2 % SpO2 Duration ? 88% 6.9 % (28.5m) 26.2 % 0 % Pulse in TST ?? Quality ?? Average: 54.7 bpm Oximeter: 100 % Maximum: 72 bpm Nasal Cannula: 100 % Minimum: 47 bpm Abdomen RIP: 100 % Duration < 40 bpm: 0 m Thorax RIP: 100 % Duration > 100 bpm: 0 m ? Nilesh Phelps MD SLEEP CENTER * URINE ALBUMIN TO CREATININE RATIO, RANDOM (01/26/2024 7:13 AM T) ALB RAND URINE <12.0 mg/L 01/26/2024 6:00 PM T [facility] CREATININE,URINE 1.80 g/L 01/26/20 6:00 PM T [facility] ALBUMIN TO CREATININE RATIO,RAND UR 01/26/2024 6:00 PM [facility] Comment:Urine Albumin below measurement range, unable to calculate. Urine URINE SPECIMEN / Unknown Non-Blood / Unknown 01/26/2024 7:13 AM CDT 01/26/2024 7:13 AM CDT Narrative [facility] - 01/26/2024 6:00 PM CDT If Albumin to Creatinine Ratio is elevated, consider the following: ? Elevations seen with incipient nephropathy associated ?? with diabetes mellitus or hypertension. Stress, exercise,hematuria, ?? and urinary tract infection may also produce elevated results. If clinically indicated, confirm with ?24 Hour Albumin to Creatinine Ratio. ?? Christofer Castelan MD URINE [facility] [address] [place] [address], * LIPID PANEL W REFLEX MEASURED LDL (01/26/2024 7:07 AM CDT) CHOLESTEROL,TOTAL 111 100 - 199 mg/dL 01/26/2024 4:57 PM CDT [facility] Comment: Cholesterol, Total Reference Ranges Desirable <200 mg/dL Borderline 200-239 mg/dL High >=240 mg/dL TRIGLYCERIDES 103 <150 mg/dL 01/26/2024 4:57 PM CDT [facility] HDL CHOLESTEROL 42 >40 mg/dL 4:57 PM CDT [facility] NON-HDL CHOLESTEROL 69 <145 mg/dl 01/26/2024 4:57 PM CDT [facility] CHOL/HDL RATIO 2.64 <4.50 01/26/2024 4:57 PM CDT [facility] LDL CHOLESTEROL 48 <=130 mg/dL 01/26/2024 4:57 PM CDT [facility] VLDL CHOLESTEROL 21 <=30 mg/dL 01/26/2024 4:57 PM CDT [facility] PROVIDER ORDERED STATUS RANDOM 01/26/2024 4:57 PM CDT [facility] Blood BLOOD SPECIMEN / Unknown Venipuncture / Unknown 01/26/2024 7:07 AM CDT 01/26/2024 7:08 AM CDT Christofer Castelan MD CHEMISTRY Performing Organization Address [facility] Co de Phone Number [facility] [address] [place] [address], [place] * HEMOGLOBIN A1C MONITORING (POCT) (01/26/2024 7:07 AM CDT) [facility] HEMOGLOBIN A1C MONITORING (POCT) 5.6 <=6.4 % 01/26/2024 7:28 AM CDT [facility] Blood BLOOD SPECIMEN / Unknown Venipuncture / Unknown 01/26/2024 7:07 AM CDT 01/26/2024 7:08 AM CDT Narrative [facility] - 01/26/2024 7:28 AM CDT ? (<=6.9%) ? Indicates good control ? (7.0% to 7.9%) ? Indicates fair control ? (>=8.0%) ? Indicates poor control ?? NOTE: ??These thresholds are guidelines and ?individual targets may vary. Falsely low levels may be seen with: Recent Transfusion, Recent Significant Blood Loss, Hemolytic Diseases, or Falsely elevated levels may be seen with: Untreated Anemias, Splenectomy ? Christofer Castelan MD CHEMISTRY Performing Organization Address [facility] de Phone Number [facility] [address] [place] [address], * (ABNORMAL) BASIC METABOLIC PANEL (01/26/2024 7:07 AM CDT) [facility] SODIUM 140 136 - 145 mmol/L 01/26/2024 3:08 PM CDT [facility] POTASSIUM 4.3 3.5 - 5.1 mmol/L 01/26/2024 3:08 PM CDT [facility] CHLORIDE 103 98 - 107 mmol/L 01/26/2024 3:08 PM CDT [facility] CO2,TOTAL 28 22 - 29 mmol/L 01/26/2024 3:08 PM CDT [facility] ANION GAP 9 5 - 18 01/26/2024 3:08 PM CDT [facility] GLUCOSE 98 70 - 99 mg/dL 01/26/2024 3:08 PM CDT [facility] CALCIUM 9.4 8.8 - 10.2 mg/dL 01/26/2024 3:08 PM CDT [facility] BUN 18 8 - 23 mg/dL 01/26/2024 3:08 PM CDT [facility] CREATININE 0.99 0.70 - 1.20 mg/dL 01/26/2024 3:08 PM CDT [facility] BUN/CREAT RATIO 18 10 - 20 3:08 PM CDT [facility] eGFR 79(L) >90 mL/min/1.7 3m2 01/26/2024 3:08 PM CDT [facility] Comment:As of 2021, eG FR is calculated by the CKD-EPI creatinine equation without race adjustment. ??eGFR can be influenced by muscle mass, exercise, and diet. ??The reported eGFR is an estimation only and is only applicable if the renal function is stable. Blood BLOOD SPECIMEN / Unknown Venipuncture / Unknown 01/26/2024 7:07 AM CDT 01/26/2024 7:08 AM CDT Christofer Castelan MD CHEMISTRY [facility] [address] [place] [address], * PSA TOTAL SCREEN (01/26/2024 7:07 AM CDT) PSA TOTAL (SCREEN) 0.12 <4.00 ng/mL 01/26/2024 3:08 PM CDT [facility] Blood BLOOD SPECIMEN / Unknown Venipuncture / Unknown 01/26/2024 7:07 AM CDT 01/26/2024 7:08 AM CDT Narrative [facility] - 01/26/2024 3:08 PM CDT The test method changed on 04/08/2023. If this test has been used for serial monitoring, rebaselining is recommended. Rebaselining consists of 2 measurements, collected 3-6 weeks apart. The [employer] total PSA assay is an electrochemiluminescence immunoassay ECLIA performed on the [employer] e immunoassay analyzers. Values obtained with different assay methods may be different and cannot be used interchangeably. Christofer Castelan MD LABOR[facility]ORY [facility] [address] [place] [address], * ANTI HCV (03/12/2022 2:56 PM CDT) HEPATITIS C ANTIBODY Non-React satya Non-React satya 03/13/2022 11:43 AM CDT [facility] Comment:Antibodies to HCV no t detected; does not exclude the possibility of exposure to HCV. Blood BLOOD SPECIMEN / Unknown Venipuncture / Unknown 03/12/2022 2:56 PM CDT 03/12/2022 2:58 PM CDT Christofer Castelan MD [facility] [address] [place] [address], from Last 3 Months or Most Recently Relevant to Health Maintenance Advance Directives Documents on File Type Date Recorded Patient High School Professional Expl anation Healthcare Directive 10/08/2012 4:03 PM H CD * Full Code (Latest Code Status on File) Date Activated Date Inactivated Comments 04/08/2018 10:38 AM 04/08/2018 6:44 PM * Full Code Date Activated Date Inactivated Comments 04/08/2018 10:38 AM 04/08/2018 10:38 AM Care Teams Net Repairer Relationship Specialty Start Date End Date Christofer Castelan MD [address] [place] [address] PCP - General Family Practice 05/31/13
[2024-03-09 15:11] LABS: Basophils Absolute Auto 0.03 K/uL (0.00-0.30); Basophils Percent Auto 0.6 % (0.0-3.0); Eosinophils Absolute Auto 0.19 K/uL (0.00-0.50); Eosinophils Percent Auto 3.5 % (0.0-7.0); Hemoglobin* 15.1 gm/dL (13.5-17.5); Lymphocytes Percent Auto 19.9 % (20-44); Mean Corpuscular HGB Conc 33 gm/dL (32-36); Mean Corpuscular Hemoglobin 30 pg (26-34); Mean Corpuscular Volume 92 fL (80-100); Monocytes Percent Auto 9.8 % (0.0-11.0); Neutrophils Absolute Auto 3.59 K/uL (1.7-7.0); Neutrophils Percent Auto 66.2 % (42.0-72.0); Platelet Count* 165 K/uL (140-440); RDW Coefficient of Variation % 12.5 % (11.5-15.5); Red Blood Count 5.01 m/uL (4.30-5.90); White Blood Count* 5.42 K/uL (4.50-11.00)
[2024-03-09 15:25] LABS: Slide Review Reflex No
[2024-03-09 15:26] LABS: Albumin* 4.9 g/dL (3.3-5.0); Chloride* 105 mmol/L (96-114)
[2024-03-09 15:27] LABS: Potassium* 3.9 mmol/L (3.6-5.1); Sodium* 140 mmol/L (135-149)
[2024-03-09 15:29] LABS: Alkaline Phosphatase* 67 U/L (40-150); Anion Gap 6 mEq/L (7-15); Aspartate Amino Transferase* 30 U/L (12-35); Bilirubin Total* 0.8 mg/dL (0.1-1.5); Blood Urea Nitrogen* 20 mg/dL (7-30); Carbon Dioxide* 29 mmol/L (20-32); Creatinine* 0.8 mg/dL (0.5-1.5); Estimated Glomerular Filt Rate 92 ml/min
[2024-03-09 15:30] VITALS: BP 135/75; PULSE 55; RESP 14; O2SAT 98
[2024-03-09 15:30] LABS: Alanine Aminotransferase* 30 U/L (4-50); Calcium* 9.2 mg/dL (8.4-10.6); Glucose* 102 mg/dL (60-115)
[2024-03-09 15:34] LABS: D Dimer Quantitative* 0.16 ug/ml (0.00-0.50)
[2024-03-09 15:38] LABS: NT Pro B Type NatriureticPept* 162 pg/mL
[2024-03-09 15:40] LABS: Troponin I* < 0.01 ng/mL (0.01-0.04)
[2024-03-09 15:49] LABS: PCR FLU A Negative PCR FLU A (Negative); PCR FLU B Negative PCR FLU B (Negative); PCR RSV Negative PCR RSV (Negative); SARS PCR* Negative SARS-CoV-2 (Negative)
[2024-03-09 16:00] VITALS: BP 132/77; PULSE 59; RESP 14; O2SAT 95
[2024-03-09 16:30] VITALS: BP 134/76; PULSE 59; RESP 14; O2SAT 97
== END 2024-03-09 16:55 | disposition home or self-care (01) ==
PROVIDERS: Emergency Provider Family Medicine; PCP Family Medicine
DX: R06.02 Shortness of breath (principal)
CPT/HCPCS: 36415; 71045; 80053; 83880; 84484; 85025; 85379; 87631; 93005; 94761; 99284